=== PATIENT | female | born 1935 | race Caucasian/White ===

== ENCOUNTER 2017-11-28 09:47 | Day surgery (SDC) | payer MEDICARE, OTHER, SELFPAY ==
[2017-11-28 09:58] VITALS: BP 200/101; PULSE 102; RESP 16; TEMP 35.8; O2SAT 100; BMI 29.0
[2017-11-28] MEDS: SODIUM CHLORIDE 0.9% 1,000 ML 200 ML IV (10:20)
[2017-11-28 10:22] VITALS: BMI 29.0
[2017-11-28] MEDS: fentaNYL 250 MCG/5 ML INJ IV (10:38)
--- NOTE | 2017-11-28 10:38 | PM.HP.1 ---
History of Present Illness Chief complaint: [id number] SCREENING COLONOSCOPY Narrative: Renuka Horne is a 82 year old female The patient has had polyps removed in the past. Her last colonoscopy was 6 years ago. She is here for screening exam. Patient History Medical History History of CVA with residual deficit (Acute) Surgical History History of excision of pilonidal cyst (Inactive) History of knee replacement Family & Social History Social History: household members spouse Prior Living Arrangements House Tobacco & Substance use: Never smoked Meds Home Medications Medication Instructions Recorded Confirmed Type CALCIUM CARBONATE (#CALCIUM 600) 1,200 tab PO Q DAY #0 09/01/11 11/28/17 History Fish Oil 1,000 mg PO BID #0 09/01/11 11/28/17 History MULTIVITAMIN 1 cap PO Q DAY #0 09/01/11 11/28/17 History clobetasol 0 TOPICAL BID 11/28/17 History Allergies Allergy/AdvReac Type Severity Reaction Status Date / Time amlodipine [AMLODIPINE] Allergy Severe THROAT Verified 11/28/17 10:35 SWELLING latex [LATEX] Allergy Mild RASH Unverified 10/11/17 13:11 nitrofurantoin Allergy Mild RASH Unverified 10/11/17 13:11 [NITROFURANTOIN] Yhhimsn-Mmw-Fgb Reductase Allergy Mild JOINT PAINS Unverified 10/11/17 13:11 Inhibitor [PKESGHI-YGJ-YFT REDUCTASE INHIBITOR] sulfadiazine [SULFADIAZINE] Allergy Mild JOINT PAIN Unverified 10/11/17 13:11 ciprofloxacin [CIPROFLOXACIN] Allergy Unknown CIPRO HC Unverified 10/11/17 13:11 hydrocortisone Allergy Unknown CIPRO HC Unverified 10/11/17 13:11 [HYDROCORTISONE] Review of Systems Review of Systems All systems reviewed & are unremarkable except as noted in HPI and below Musculoskeletal Comments: Mild weakness right side after CVA. Physical therapy nearly resolved issue. Neurologic Comments: Mild issue with word forming and memory after CVA Exam Vital Signs (past 8 hours): Vital Signs - 8 hr 11/28/17 09:58 Temperature 96.5 F L Pulse Rate 102 H Respiratory Rate 16 Blood Pressure 200/101 H Pulse Oximetry 100 Pulse Oximetry 100 Oxygen Delivery Method Room Air Narrative Exam Narrative: Operative no apparent distress. Eyes nonicteric lungs are clear to auscultation without rales or rhonchi . heart regular rate and rhythm without murmur gallop. abdomen is soft scaphoid nontender without mass. patient is alert and oriented x3 Assessment & Plan Plan: Plan: I have discussed the procedure and the rationale with the patient including risks of bleeding, perforation which would necessitate a major operation, failure to find remove all lesions and the potential to tattoo. They appeared to understand and wished to proceed.
[2017-11-28] MEDS: MIDAZOLAM 5 MG/5 ML VIAL IV (10:39)
--- NOTE | 2017-11-28 10:44 | P.HP_ITS ---
History of Present Illness Chief complaint: [id number] SCREENING COLONOSCOPY Narrative: Renuka Horne is a 82 year old female The patient has had polyps removed in the past. Her last colonoscopy was 6 years ago. She is here for screening exam. Patient History Medical History History of CVA with residual deficit (Acute) Surgical History History of excision of pilonidal cyst (Inactive) History of knee replacement Family & Social History Social History: household members spouse Prior Living Arrangements House Tobacco & Substance use: Never smoked Meds Home Medications Medication Instructions Recorded Confirmed Type CALCIUM CARBONATE (#CALCIUM 600) 1,200 tab PO Q DAY #0 09/01/11 11/28/17 History Fish Oil 1,000 mg PO BID #0 09/01/11 11/28/17 History MULTIVITAMIN 1 cap PO Q DAY #0 09/01/11 11/28/17 History clobetasol 0 TOPICAL BID 11/28/17 History Allergies Allergy/AdvReac Type Severity Reaction Status Date / Time amlodipine [AMLODIPINE] Allergy Severe THROAT Verified 11/28/17 10:35 SWELLING latex [LATEX] Allergy Mild RASH Unverified 10/11/17 13:11 nitrofurantoin Allergy Mild RASH Unverified 10/11/17 13:11 [NITROFURANTOIN] Pwgfpaa-Hqo-Sjd Reductase Allergy Mild JOINT PAINS Unverified 10/11/17 13:11 Inhibitor [THWRSOP-ZVB-SAD REDUCTASE INHIBITOR] sulfadiazine [SULFADIAZINE] Allergy Mild JOINT PAIN Unverified 10/11/17 13:11 ciprofloxacin [CIPROFLOXACIN] Allergy Unknown CIPRO HC Unverified 10/11/17 13:11 hydrocortisone Allergy Unknown CIPRO HC Unverified 10/11/17 13:11 [HYDROCORTISONE] Review of Systems Review of Systems All systems reviewed & are unremarkable except as noted in HPI and below Musculoskeletal Comments: Mild weakness right side after CVA. Physical therapy nearly resolved issue. Neurologic Comments: Mild issue with word forming and memory after CVA Exam Vital Signs (past 8 hours): Vital Signs - 8 hr 3 11/28/17 09:58 Temperature 96.5 F L Pulse Rate 102 H Respiratory Rate 16 Blood Pressure 200/101 H Pulse Oximetry 100 Pulse Oximetry 100 Oxygen Delivery Method Room Air Narrative Exam Narrative: Operative no apparent distress. Eyes nonicteric lungs are clear to auscultation without rales or rhonchi . heart regular rate and rhythm without murmur gallop. abdomen is soft scaphoid nontender without mass. patient is alert and oriented x3 Assessment & Plan Plan: Plan: I have discussed the procedure and the rationale with the patient including risks of bleeding, perforation which would necessitate a major operation, failure to find remove all lesions and the potential to tattoo. They appeared to understand and wished to proceed.
--- NOTE | 2017-11-28 10:44 | PM.HP.1 ---
History of Present Illness Chief complaint: [id number] SCREENING COLONOSCOPY Narrative: Renuka Horne is a 82 year old female Patient History Medical History History of CVA with residual deficit (Acute) Surgical History History of excision of pilonidal cyst (Inactive) History of knee replacement Family & Social History Social History: household members spouse Prior Living Arrangements House Meds Home Medications Medication Instructions Recorded Confirmed Type CALCIUM CARBONATE (#CALCIUM 600) 1,200 tab PO Q DAY #0 09/01/11 11/28/17 History Fish Oil 1,000 mg PO BID #0 09/01/11 11/28/17 History MULTIVITAMIN 1 cap PO Q DAY #0 09/01/11 11/28/17 History clobetasol 0 TOPICAL BID 11/28/17 History Allergies Allergy/AdvReac Type Severity Reaction Status Date / Time amlodipine [AMLODIPINE] Allergy Severe THROAT Verified 11/28/17 10:35 SWELLING latex [LATEX] Allergy Mild RASH Unverified 10/11/17 13:11 nitrofurantoin Allergy Mild RASH Unverified 10/11/17 13:11 [NITROFURANTOIN] Ijsowfz-Xwz-Snn Reductase Allergy Mild JOINT PAINS Unverified 10/11/17 13:11 Inhibitor [DJAJEYD-GLE-OBH REDUCTASE INHIBITOR] sulfadiazine [SULFADIAZINE] Allergy Mild JOINT PAIN Unverified 10/11/17 13:11 ciprofloxacin [CIPROFLOXACIN] Allergy Unknown CIPRO HC Unverified 10/11/17 13:11 hydrocortisone Allergy Unknown CIPRO HC Unverified 10/11/17 13:11 [HYDROCORTISONE] Exam Vital Signs (past 8 hours): Vital Signs - 8 hr 11/28/17 09:58 Temperature 96.5 F L Pulse Rate 102 H Respiratory Rate 16 Blood Pressure 200/101 H Pulse Oximetry 100 Pulse Oximetry 100 Oxygen Delivery Method Room Air
--- NOTE | 2017-11-28 10:47 | P.HP_ITS ---
History of Present Illness Chief complaint: [id number] SCREENING COLONOSCOPY Narrative: Renuka Horne is a 82 year old female Patient History Medical History History of CVA with residual deficit (Acute) Surgical History History of excision of pilonidal cyst (Inactive) History of knee replacement Family & Social History Social History: household members spouse Prior Living Arrangements House Meds Home Medications Medication Instructions Recorded Confirmed Type CALCIUM CARBONATE (#CALCIUM 600) 1,200 tab PO Q DAY #0 09/01/11 11/28/17 History Fish Oil 1,000 mg PO BID #0 09/01/11 11/28/17 History MULTIVITAMIN 1 cap PO Q DAY #0 09/01/11 11/28/17 History clobetasol 0 TOPICAL BID 11/28/17 History Allergies Allergy/AdvReac Type Severity Reaction Status Date / Time amlodipine [AMLODIPINE] Allergy Severe THROAT Verified 11/28/17 10:35 SWELLING latex [LATEX] Allergy Mild RASH Unverified 10/11/17 13:11 nitrofurantoin Allergy Mild RASH Unverified 10/11/17 13:11 [NITROFURANTOIN] Trxyctb-Bhh-Ytz Reductase Allergy Mild JOINT PAINS Unverified 10/11/17 13:11 Inhibitor [WMLXRXG-OWB-EOQ REDUCTASE INHIBITOR] sulfadiazine [SULFADIAZINE] Allergy Mild JOINT PAIN Unverified 10/11/17 13:11 ciprofloxacin [CIPROFLOXACIN] Allergy Unknown CIPRO HC Unverified 10/11/17 13:11 hydrocortisone Allergy Unknown CIPRO HC Unverified 10/11/17 13:11 [HYDROCORTISONE] Exam Vital Signs (past 8 hours): Vital Signs - 8 hr 3 11/28/17 09:58 Temperature 96.5 F L Pulse Rate 102 H Respiratory Rate 16 Blood Pressure 200/101 H Pulse Oximetry 100 Pulse Oximetry 100 Oxygen Delivery Method Room Air
--- NOTE | 2017-11-28 10:47 | PM.PREOP ---
Pre-operative Note Interval Note Pre-op Check: History & Physical exam performed today ASA Class (for procedural sedation): II
--- NOTE | 2017-11-28 11:07 | SUR.OPER ---
BILATERAL HEARING AIDS REMOVED ,LABELED AND PLACED IN A CUP FOR PATIENT. HANDED OVER TO [employer] IN LABELED CUP
--- NOTE | 2017-11-28 11:40 | PM.OP.ENDO ---
Operative Date/Time/Diagnoses - Date of procedure: 11/28/17 Time of procedure: 11:40 Pre-op diagnosis: Screening exam last colonoscopy 6 years ago. 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 Could not get beyond it. Extensive diverticulosis) Procedure & Clinicians Study performed: Colonoscopy converted to flex sig Same procedure as scheduled: Yes Indications: Screening Surgeon: Man Kearns Procedure Notes SCOAP/Timeout: Performed Procedure in detail: Patient is placed in left lateral decubitus position underwent IV sedation directed by the surgeon consisting fentanyl and Versed. Digital exam was unremarkable. The patient was also given Phenergan due to history of nausea with anesthesia. Scope was inserted advanced through the rectum into the sigmoid. Very early on a encountered numerous diverticulitis stricture. I repositioned the patient and manipulated the scope but not get beyond that stricture. The scope was removed and a pediatric scope was inserted. The result was the same. After attempting for area of diverticulosis and stricture I admitted defeat and abandon the procedure. The scope was removed the patient was noted to have internal hemorrhoids without ulceration. Scope withdrawal time: Not applicable Sedation minutes: 47 Findings: diverticulosis Specimen(s): none sent Complications: none Recommendations: Other recommendation (Barium enema recommended) Plan for aftercare: Follow-up with after barium enema Follow up: as needed Disposition: PACU
[2017-11-28 11:43] VITALS: BP 122/75; PULSE 72; RESP 13; TEMP 36.4; O2SAT 99
[2017-11-28 11:59] VITALS: BP 161/83; PULSE 68; RESP 15; TEMP 36.9; O2SAT 97
== END 2017-11-28 12:12 | disposition home or self-care (01) ==
PROVIDERS: Family Provider Family Medicine; PCP Family Medicine; Visit Provider Specialist
PROC: 0DJD8ZZ Inspection of Lower Intestinal Tract, Via Natural or Artificial Opening Endoscopic (ICD-10-PCS; CPT 45378; principal; 2017-11-28 11:00)
DX: Z12.11 Encounter for screening for malignant neoplasm of colon (principal); K57.30 Diverticulosis of large intestine without perforation or abscess without bleeding; Z86.010 Personal history of colon polyps; K56.699 Other intestinal obstruction unspecified as to partial versus complete obstruction
CPT/HCPCS: G0104; 45330; 99152; 99153; J2250; J3010

== ENCOUNTER → 2017-12-12 07:29 | Outpatient (CLI) | payer MEDICARE, OTHER, SELFPAY ==
--- NOTE | 2017-12-12 07:33 | DI.RAD.S_ITS ---
PROCEDURE: FL BARIUM ENEMA W AIR CONTRAST INDICATIONS: multiple diverticuli/incomplete coloscopy/stricture at 20cm COMPARISON: None. 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 No suspicious abdominal calcifications. Visualized solid organ contours are normal in size. No suspicious bony lesions. Colon: There is adequate air-contrast opacification from the rectum to the cecum. Contrast refluxes into the appendix. No strictures, ulcers, polyps, or masses are seen. Haustral folds are normal in thickness throughout. There is extensive diverticulosis involving the sigmoid colon and present to a lesser degree through the remainder of the colon including on the right. No acute diverticulitis is suspected.. IMPRESSION: Extensive diverticulosis, relative elongation of the colon with tortuosity. No sign of polyp or malignancy. No acute diverticulitis is suspected. Dictated by: Roni Tejeda M.D. on 12/12/2017 at 10:22 Approved by: Roni Tejeda M.D. on 12/12/2017 at 10:23
== END ==
PROVIDERS: Family Provider Family Medicine; PCP Family Medicine; Visit Provider Family Medicine
DX: K57.30 Diverticulosis of large intestine without perforation or abscess without bleeding (principal)
CPT/HCPCS: 74280

== ENCOUNTER → 2017-12-28 08:34 | Outpatient (CLI) | payer MEDICARE, OTHER, SELFPAY ==
[2017-12-28 10:53] LABS: Add Manual Diff / Slide Review NO; Basophils Percent Auto 0.3 % (0-2); Eosinophils Percent Auto 1.5 % (2-4); Hematocrit 40.6 % (36-46); Hemoglobin 13.7 g/dL (12.0-16.0); Lymphocytes Percent Auto 32.1 % (25-40); Mean Corpuscular HGB Conc 33.8 % (30-36); Mean Corpuscular Hemoglobin 32.3 PG (26-34); Mean Corpuscular Volume 95.8 fL (80-100); Neutrophils Absolute Auto 4000 /uL (3000-5900); Neutrophils Percent Auto 58.1 % (50-75); Platelet Count 218 X10^3/uL (150-400); Red Blood Cell Count 4.24 X10^6/uL (4.0-5.2); Red Cell Distribution Width 13.3 % (11.6-14.8); White Blood Cell Count 6.8 X10^3/uL (4.5-11.0)
[2017-12-28 11:29] LABS: Blood Urea Nitrogen 20 mg/dL (7-17); Calcium 9.7 mg/dL (8.4-10.2); Carbon Dioxide 29 mmol/L (22-32); Chloride 101 mmol/L (98-107); Cholesterol 229 mg/dL (140-199); Estimated Glomerular Filt Rate 53.3 mL/min (>60); Glucose 97 mg/dL (80-110); HDL Cholesterol 85 mg/dL (40-60); HEMOLYSIS < 15 (0-50); LDL Cholesterol Calculated 120 mg/dL (<100); Potassium 5.2 mmol/L (3.4-5.1); Sodium 143 mmol/L (137-145); Triglycerides 120 mg/dL (35-150)
== END ==
PROVIDERS: PCP Family Medicine; Visit Provider Family Medicine
DX: E78.2 Mixed hyperlipidemia (principal); I10 Essential (primary) hypertension
CPT/HCPCS: 36415; 80048; 80061; 85025

== ENCOUNTER → 2018-10-20 10:30 | Outpatient (CLI) | payer MEDICARE, OTHER, SELFPAY ==
--- NOTE | 2018-10-20 | DI.MG.S_ITS ---
BILATERAL DIGITAL SCREENING MAMMOGRAM 3D/2D WITH CAD: 10/20/2018 CLINICAL: Routine screening. Comparison is made to exams dated: 10/19/2017 mammogram, 10/05/2016 mammogram, and 10/01/2015 mammogram - [facility]. The tissue of both breasts is heterogeneously dense. This may lower the sensitivity of mammography. Current study was also evaluated with a Computer Aided Detection (CAD) system. There are benign calcifications in both breasts. No significant masses, calcifications, or other findings are seen in either breast. There has been no significant interval change. IMPRESSION: There is no mammographic evidence of malignancy. A 1 year screening mammogram is recommended. This exam was interpreted at Station ID: [id number]. NOTE: For mammograms, a report in lay terms will be sent to the patient. Approximately 15% of breast malignancies will not be visualized mammographically. In the management of a palpable breast mass, a negative mammogram must not discourage biopsy of a clinically suspicious lesion. Electronically Signed By: Savanah goddard/adela:10/22/2018 08:29:06 letter sent: Normal Exam ACR BI-RADS Category 2: Benign Finding(s) 3342F
== END ==
PROVIDERS: PCP Family Medicine; Visit Provider Family Medicine
DX: Z12.31 Encounter for screening mammogram for malignant neoplasm of breast (principal)
CPT/HCPCS: 77063; 77067

== ENCOUNTER → 2018-12-11 16:27 | Outpatient (CLI) | payer MEDICARE, OTHER, SELFPAY | PROVIDERS: PCP Family Medicine; Visit Provider Nurse Practitioner ==

== ENCOUNTER → 2019-01-11 09:41 | Outpatient (CLI) | payer MEDICARE, OTHER, SELFPAY ==
[2019-01-11 10:16] LABS: Add Manual Diff / Slide Review NO; Basophils Absolute Auto 0 /uL (0-100); Basophils Percent Auto 0.3 % (0-2); Eosinophils Absolute Auto 200 /uL (0-450); Eosinophils Percent Auto 2.8 % (2-4); Hematocrit 40.3 % (36-46); Hemoglobin 13.7 g/dL (12.0-16.0); Lymphocytes Absolute Auto 2100 /uL (1100-4500); Lymphocytes Percent Auto 33.3 % (25-40); Mean Corpuscular Hemoglobin 32.1 PG (26-34); Mean Corpuscular Volume 94.3 fL (80-100); Monocytes Absolute Auto 600 /uL (0-900); Monocytes Percent Auto 8.8 % (3-14); Neutrophils Absolute Auto 3500 /uL (1500-7000); Neutrophils Percent Auto 54.8 % (50-75); Platelet Count 221 X10^3/uL (150-400); Red Blood Cell Count 4.28 X10^6/uL (4.0-5.2); Red Cell Distribution Width 13.3 % (11.6-14.8); White Blood Cell Count 6.3 X10^3/uL (4.5-11.0)
[2019-01-11 10:34] LABS: Alanine Aminotransferase 16 IU/L (9-52); Albumin 4.4 g/dL (3.5-5.0); Albumin Globulin Ratio 1.5 (1.0-2.8); Alkaline Phosphatase 105 U/L (38-126); Aspartate Aminotransferase 28 IU/L (14-36); Bilirubin Total 0.8 mg/dL (0.2-1.3); Blood Urea Nitrogen 25 mg/dL (7-17); Calcium 9.9 mg/dL (8.4-10.2); Carbon Dioxide 29 mmol/L (22-32); Chloride 105 mmol/L (98-107); Cholesterol 207 mg/dL (140-199); Estimated Glomerular Filt Rate 53.2 mL/min (>60); Globulin 2.9 g/dL (1.7-4.1); Glucose 116 mg/dL (80-110); HDL Cholesterol 66 mg/dL (40-60); HEMOLYSIS < 15 (0-50); LDL Cholesterol Calculated 116 mg/dL (<100); Sodium 142 mmol/L (137-145); Total Protein 7.3 g/dL (6.3-8.2); Triglycerides 126 mg/dL (35-150)
[2019-01-11 11:39] LABS: Thyroid Stimulating Hormone 0.39 uIU/mL (0.47-4.68)
== END ==
PROVIDERS: PCP Family Medicine; Visit Provider Family Medicine
DX: E78.2 Mixed hyperlipidemia (principal); I10 Essential (primary) hypertension; M85.80 Other specified disorders of bone density and structure, unspecified site
CPT/HCPCS: 36415; 80053; 80061; 84443; 85025

== ENCOUNTER → 2019-02-07 10:38 | Outpatient (CLI) | payer MEDICARE, OTHER, SELFPAY ==
[2019-02-07 11:31] LABS: Hemoglobin A1C% w Est Avg Glu 5.7 % (4.0-6.0)
[2019-02-07 12:11] LABS: Free T3, Triiodothyronine Free 3.28 pg/mL (2.77-5.27); Free T4, Direct Thyroxine 1.18 ng/dL (0.78-2.19)
[2019-02-07 12:25] LABS: Thyroid Stimulating Hormone 1.87 uIU/mL (0.47-4.68)
== END ==
PROVIDERS: PCP Family Medicine; Visit Provider Family Medicine
DX: I10 Essential (primary) hypertension (principal)
CPT/HCPCS: 36415; 83036; 84439; 84443; 84481

== ENCOUNTER → 2019-02-25 09:18 | Outpatient (CLI) | payer MEDICARE, OTHER, SELFPAY ==
--- NOTE | 2019-02-25 10:14 | DI.US.S_ITS ---
PROCEDURE: US CAROTID DOPPLER BI INDICATIONS: TRANSIENT ISCHEMIC ATTACK TECHNIQUE: Color and pulse Doppler interrogation was performed of both carotid systems, with image documentation and velocity measurements. COMPARISON: [facility], STROKE PROTOCOL, 01/20/2015, 14:51. FINDINGS: Stenosis calculations are based on SRU (Society of Radiologists in Ultrasound) criteria. The flow velocities and the arterial waveforms are normal within both carotid arterial systems. Atherosclerotic plaque is seen on both sides. The estimated degree of internal carotid artery stenosis is less than 50%. Antegrade flow is confirmed within both vertebral arteries. IMPRESSION: No hemodynamically significant stenosis is seen. Atherosclerotic plaque is noted bilaterally. Dictated by: Jalen Islas M.D. on 02/25/2019 at 16:55 Approved by: Jalen Islas M.D. on 02/25/2019 at 16:56
== END ==
PROVIDERS: PCP Family Medicine; Visit Provider Family Medicine
DX: I63.9 Cerebral infarction, unspecified (principal)
CPT/HCPCS: 93880

== ENCOUNTER → 2019-12-27 13:28 | Outpatient (CLI) | payer MEDICARE, OTHER, SELFPAY ==
--- NOTE | 2019-12-27 13:32 | DI.MG.S_ITS ---
BILATERAL DIGITAL SCREENING MAMMOGRAM 3D/2D WITH CAD: 12/27/2019 CLINICAL: Routine screening. Comparison is made to exams dated: 10/20/2018 mammogram, 10/19/2017 mammogram, and 10/05/2016 mammogram - [facility]. The tissue of both breasts is heterogeneously dense. This may lower the sensitivity of mammography. Current study was also evaluated with a Computer Aided Detection (CAD) system. There are benign calcifications in both breasts. No significant masses, calcifications, or other findings are seen in either breast. There has been no significant interval change. IMPRESSION: There is no mammographic evidence of malignancy. A 1 year screening mammogram is recommended. This exam was interpreted at Station ID: [id number]. NOTE: For mammograms, a report in lay terms will be sent to the patient. Approximately 15% of breast malignancies will not be visualized mammographically. In the management of a palpable breast mass, a negative mammogram must not discourage biopsy of a clinically suspicious lesion. Electronically Signed By: Chi chanel/adela:12/31/2019 14:45:30 letter sent: Normal Exam ACR BI-RADS Category 2: Benign Finding(s) 3342F
== END ==
PROVIDERS: PCP Family Medicine; Referring Provider Family Medicine; Visit Provider Family Medicine
DX: Z12.31 Encounter for screening mammogram for malignant neoplasm of breast (principal)
CPT/HCPCS: 77063; 77067

== ENCOUNTER → 2020-01-06 07:08 | Outpatient (CLI) | payer MEDICARE, OTHER, SELFPAY ==
[2020-01-06 08:27] LABS: Add Manual Diff / Slide Review NO; Basophils Absolute Auto 0 /uL (0-100); Basophils Percent Auto 0.4 % (0-2); Eosinophils Absolute Auto 100 /uL (0-450); Eosinophils Percent Auto 2.3 % (2-4); Hematocrit 39.4 % (36-46); Hemoglobin 13.3 g/dL (12.0-16.0); Lymphocytes Absolute Auto 2000 /uL (1100-4500); Lymphocytes Percent Auto 31.3 % (25-40); Mean Corpuscular HGB Conc 33.7 % (30-36); Mean Corpuscular Hemoglobin 32.1 PG (26-34); Mean Corpuscular Volume 95.4 fL (80-100); Monocytes Absolute Auto 500 /uL (0-900); Monocytes Percent Auto 8.3 % (3-14); Neutrophils Absolute Auto 3600 /uL (1500-7000); Neutrophils Percent Auto 57.7 % (50-75); Platelet Count 207 X10^3/uL (150-400); Red Blood Cell Count 4.13 X10^6/uL (4.0-5.2); Red Cell Distribution Width 13.1 % (11.6-14.8); White Blood Cell Count 6.3 X10^3/uL (4.5-11.0)
[2020-01-06 08:37] LABS: Hemoglobin A1C% w Est Avg Glu 6.3 % (4.0-6.0)
[2020-01-06 08:41] LABS: Alanine Aminotransferase 13 IU/L (<35); Albumin 4.1 g/dL (3.5-5.0); Albumin Globulin Ratio 1.3 (1.0-2.8); Alkaline Phosphatase 88 U/L (38-126); Aspartate Aminotransferase 28 IU/L (14-36); BUN Creatinine Ratio 24.1 (6-22); Bilirubin Total 0.6 mg/dL (0.2-1.3); Blood Urea Nitrogen 21 mg/dL (7-17); Calcium 9.9 mg/dL (8.4-10.2); Carbon Dioxide 30 mmol/L (22-32); Chloride 104 mmol/L (98-107); Estimated Glomerular Filt Rate > 60.0 mL/min (>60); Globulin 3.1 g/dL (1.7-4.1); Glucose 100 mg/dL (80-110); HEMOLYSIS < 15 (0-50); Potassium 4.7 mmol/L (3.4-5.1); Sodium 138 mmol/L (137-145); Total Protein 7.2 g/dL (6.3-8.2)
[2020-01-06 09:16] LABS: Thyroid Stimulating Hormone 2.73 uIU/mL (0.47-4.68)
== END ==
PROVIDERS: PCP Family Medicine; Referring Provider Family Medicine; Visit Provider Family Medicine
DX: I10 Essential (primary) hypertension (principal); R73.9 Hyperglycemia, unspecified
CPT/HCPCS: 36415; 80053; 83036; 84443; 85025

== ENCOUNTER → 2020-01-21 10:47 | Outpatient (CLI) | payer MEDICARE, OTHER, SELFPAY ==
--- NOTE | 2020-01-21 12:37 | DIET.PN ---
Diabetes Intake: Initial Assessment Assess: Mrs. Horne is an 84 YOF referred for type 2 diabetes. She was recently diagnosed and has been working to improve dietary habits since DX. She believes this diagnosis was a result of stress related eating and baking due to Covid-19 pandemic. She reported dizziness during waking and between meals if she goes greater than 3 hrs without eating. This has improved with better eating habits and hydration. She has always been active including crossfit and walking, but in the last year her activity has decreased bc of knee issues. She does not currently have a glucometer. Labs: Per pt report: a1c: 6.3 Lipids: TC: 207 LDL: 116 HDL: 66 T Meds: NA Diet: per 24 hr recall: B: eng muffin w/ butter and jam, fruit S: coffee w/ cookies L: chix salad sandwich on a roll S: coffee w/ short bread D: protein, veg, salad, fruit or starch Wt: 161lb Ht: 62in BMI: 29.4 BP: 189/84 DX: Altered nutrition related laboratory values related to impaired glucose metabolism, lack of previous exposure to nutrition information as evidenced by pt report, diagnosis of diabetes, previous diet high in refined carbohydrates. Intervention: 1. Completed intake assessment. Discussed barriers to care. 2. Discussed pathophysiology of diabetes. Reviewed A1c and its correlation to blood glucose numbers. Discussed recommended BG ranges. 3. Discussed importance of self-monitoring, how often, and when to check. Provided demonstration on use of glucometer. 4. Reviewed hyper/hypoglycemia and treatment. 5. Reviewed safe disposal of equipment (strip/lancets/insulin needles). 6. Created SMART goals for pt self-care and success. 7. Discussed program curriculum outline and class needs based on individual goals. SMART Goals: 1. Patient would like to lose 10lb (~5% body wt) in 3 mo through increased exercise and better eating patterns. 2. Pt would like to start monitoring BG 2-3x/wk. Monitor/Evaluate: Anticipate excellent compliance. Pt will attend full DSME program. Nutrition class scheduled for January 22.
== END ==
PROVIDERS: PCP Family Medicine; Referring Provider Family Medicine; Visit Provider Family Medicine
DX: E11.9 Type 2 diabetes mellitus without complications (principal); Z71.3 Dietary counseling and surveillance
CPT/HCPCS: G0108

== ENCOUNTER → 2020-01-23 14:14 | Outpatient (CLI) | payer MEDICARE, OTHER, SELFPAY ==
--- NOTE | 2020-01-23 16:27 | DIET.PN ---
Diabetes: Healthy Eating 2 Intervention: Fats effects on glucose, weight, heart disease, cholesterol Sat Vs Unsat Protein- animal and plant based options Low, med, high fat meats Sugar substitutes Sodium Health claims Grocery shopping guidelines Eating away from home Alcohol Sick day guidelines Ketone Testing :
== END ==
PROVIDERS: PCP Family Medicine; Referring Provider Family Medicine; Visit Provider Family Medicine
DX: E11.9 Type 2 diabetes mellitus without complications (principal); Z71.3 Dietary counseling and surveillance
CPT/HCPCS: G0109

== ENCOUNTER → 2020-02-06 14:12 | Outpatient (CLI) | payer MEDICARE, OTHER, SELFPAY ==
--- NOTE | 2020-02-06 16:30 | DIET.PN ---
Diabetes Exercise/Lifestyle change: 1. Importance of exercise 2. FITT (frequency, intensity, time, type) 3. Strength training tips and guidelines 4. Glucose monitoring/ranges before and after a. Carbohydrate needs based on glucose ranges and duration/intensity of exercise b. Rule of 15 5. Proper foot attire 6. Developing strategies for behavior change 7. SMART Goal Setting 8. Home exercise routine demonstration (as a class)
== END ==
PROVIDERS: PCP Family Medicine; Referring Provider Family Medicine; Visit Provider Family Medicine
DX: E11.9 Type 2 diabetes mellitus without complications (principal); Z71.3 Dietary counseling and surveillance
CPT/HCPCS: G0109

== ENCOUNTER → 2020-02-11 10:07 | Outpatient (CLI) | payer MEDICARE, OTHER, SELFPAY ==
--- NOTE | 2020-02-11 11:49 | DIET.PN ---
Diabetes: Healthy Eating 1 Intervention: ? Discussed pathophysiology of diabetes and impact of nutrition/diet on blood sugar control.? Discussed fed versus non-fed state.?? ? Reviewed importance of Balance, Variety, and Moderation. ? Discussed the effect of carbohydrates/protein/fat on blood sugar control.? ? Stressed importance of consistent carbohydrate intake at each meal and provided instructions for recommended servings/portions of carbohydrates/protein per meal. Provided educational material. ? Reviewed carbohydrate counting and measuring carbohydrate content via serving sizes and reading nutrition labels.? Provided handouts.?? ? Discussed the difference between simple versus complex carbohydrates and the effect of fiber on blood sugar control.? Discussed various methods to increase fiber content in diet. ? Discussed the plate method for creating more carbohydrate conscious balanced meals. ? Stressed importance of meal timing and not going >4-5 hours between meals. Encouraged adding protein to evening snack to support glucose control overnight. ? Discussed importance of making dietary habits part of lifestyle change.
== END ==
PROVIDERS: PCP Family Medicine; Referring Provider Family Medicine; Visit Provider Family Medicine
DX: E11.9 Type 2 diabetes mellitus without complications (principal); Z71.3 Dietary counseling and surveillance
CPT/HCPCS: G0109

== ENCOUNTER → 2020-02-26 10:55 | Outpatient (CLI) | payer MEDICARE, OTHER, SELFPAY ==
[2020-02-26 11:53] VITALS: BMI 28.9
--- NOTE | 2020-02-26 11:53 | DIET.PN ---
DIABETES Nutrition Initial Assessment:? ASSESS:??Ms. Horne is a 84 yof??referred for type 2 diabetes seen as part of DSME program. She has been keeping a food record and monitoring her blood sugar for the last month. In reviewing her records, she reports consistent lowering of blood glucose and weight loss. She has replaced most treats with fruit or toast w/ peanut butter. She is eating more regularly (every 3-4 hrs) and is walking with her 3x/day. She reports significant improvement in her knees with increased activity and weight loss, and has been able to discontinue her chronic use of ibuprofen. She has only had one dizzy spell in the last month after missing her usual snack, which was resolved by eating a piece of toast. ??? LABS: Per pt report:? A1c: 6.3 FB-88 Evenin-150 (207 x1) ? MEDS:?? na ? DIET: Per 24-hour recall:? B: toast w/ pb L: ? sandwich w/ fruit Sn: crackers w/ pb D: soup w/ vegetable and chicken Sn: ? cup ice cream Eating Out: 1-2x wk Changes in Appetite: Less Hungry, different cravings Nutrition Supplements: Ca + Vit D, multi vit, biotin, fishoil ? Weight: 157lb Height: 62in BMI: ? 28.7 ? Exercise:? walking 3x/day NUTRITION DX 1. Altered Nutrition related labs related to impaired glucose metabolism, lack of previous exposure to accurate nutrition information as evidenced by pt report, dx of diabetes, previous diet high in refined carbohydrates.? INTERVENTION(s): 1. Reviewed pathophysiology of diabetes and impact of nutrition/diet on blood sugar control.? Discussed fed versus non-fed state.?? 2. Discussed the effect of carbohydrates/protein/fat on blood sugar control.? Stressed importance of consistent carbohydrate intake at each meal and provided instructions for recommended servings/portions of carbohydrates/protein per meal. Provided pt with educational material. 3. Reviewed carbohydrate counting and measuring carbohydrate content via serving sizes and reading nutrition labels.? 4. Discussed the difference between simple versus complex carbohydrates and the effect of fiber on blood sugar control.? Discussed various methods to increase fiber content in diet. 5. Stressed importance of meal timing and not going >4-5 hours between meals. Encouraged adding protein to evening snack to support glucose control overnight. Patient agreeable. 6. Discussed healthy weight loss goals of 1-2lbs per week through diet and exercise.? Pt agreeable to walking at least 30 minutes daily. 7. Recommend monitoring BG a few times per week alternating fasting and evening for continued glucose control MONITOR/EVALUATE: Anticipate good compliance.? Follow-up scheduled for 3 weeks to review new labs.
== END ==
PROVIDERS: PCP Family Medicine; Referring Provider Family Medicine; Visit Provider Family Medicine
DX: E11.9 Type 2 diabetes mellitus without complications (principal)
CPT/HCPCS: G0109

== ENCOUNTER → 2020-03-10 08:10 | Outpatient (CLI) | payer MEDICARE, OTHER, SELFPAY ==
[2020-03-10 10:31] LABS: Hemoglobin A1C% w Est Avg Glu 6.2 % (4.0-6.0)
[2020-03-10 10:50] LABS: BUN Creatinine Ratio 17.5 (6-22); Blood Urea Nitrogen 18 mg/dL (7-17); Calcium 9.9 mg/dL (8.4-10.2); Carbon Dioxide 33 mmol/L (22-32); Chloride 103 mmol/L (98-107); Cholesterol 208 mg/dL (140-199); Estimated Glomerular Filt Rate 51.3 mL/min (>60); Glucose 106 mg/dL (80-110); HDL Cholesterol 68 mg/dL (40-60); HEMOLYSIS < 15 (0-50); LDL Cholesterol Calculated 105 mg/dL (<100); Potassium 5.1 mmol/L (3.4-5.1); Sodium 138 mmol/L (137-145); Triglycerides 176 mg/dL (35-150)
== END ==
PROVIDERS: PCP Family Medicine; Referring Provider Family Medicine; Visit Provider Family Medicine
DX: E11.9 Type 2 diabetes mellitus without complications (principal); E78.2 Mixed hyperlipidemia; I10 Essential (primary) hypertension; M85.80 Other specified disorders of bone density and structure, unspecified site
CPT/HCPCS: 36415; 80048; 80061; 83036

== ENCOUNTER → 2020-03-17 14:04 | Outpatient (CLI) | payer MEDICARE, OTHER, SELFPAY ==
--- NOTE | 2020-03-17 15:26 | DIET.PN ---
Diabetes Follow Up Assess: Mrs. Horne is here for her 3 mo follow up visit. She continues to experience steady weight loss and is excited to report she has had to purchase smaller clothes. Recent labs show a minor improvement in her A1c. She has been consistent with her carbohydrate intake and managing her BG. She continues to walk daily and has seen 30 point glucose reductions after evening walks. She would like to get her A1c below 6.0. Labs: A1c: 6.2 Meds: na Dietary changes: cut out sweets, reduced fruit portions, limiting baked goods Ht: 62in Wt: 153.5lb BMI: 28 Nutrition DX: Altered nutrition related laboratory values related to impaired glucose metabolism, lack of previous exposure to nutrition information as evidenced by pt report, diagnosis of diabetes, previous diet high in refined carbohydrates. Intervention: 1. Completed follow up assessment. Reviewed barriers to care. 2. Reviewed new labs and importance of continued BG monitoring. 3. Reviewed SMART goals and made modifications where appropriate including wt management, activity, and A1c goals. 4. Discussed plan for ongoing support. Provided information for continued support and success. SMART goals: 1. Pt continues to strive for goal weight of 150lb through dietary changes and exercise daily. 2. Pt strives for A1c < 6.0 by June through continued lifestyle changes. Monitor/Evaluate: Pt will follow up in 3 mo to discuss new labs and barriers to care.
== END ==
PROVIDERS: PCP Family Medicine; Referring Provider Family Medicine; Visit Provider Family Medicine
DX: E11.9 Type 2 diabetes mellitus without complications (principal); Z71.3 Dietary counseling and surveillance
CPT/HCPCS: G0109

== ENCOUNTER → 2020-05-25 11:29 | Outpatient (CLI) | payer MEDICARE, OTHER, SELFPAY ==
[2020-05-25 12:32] LABS: Hemoglobin A1C% w Est Avg Glu 6.3 % (4.0-6.0)
[2020-05-25 12:38] LABS: BUN Creatinine Ratio 26.1 (6-22); Blood Urea Nitrogen 24 mg/dL (7-17); Calcium 9.7 mg/dL (8.4-10.2); Carbon Dioxide 31 mmol/L (22-32); Chloride 105 mmol/L (98-107); Estimated Glomerular Filt Rate 58.3 mL/min (>60); Glucose 102 mg/dL (80-110); HEMOLYSIS < 15 (0-50); Potassium 4.4 mmol/L (3.4-5.1); Sodium 140 mmol/L (137-145)
== END ==
PROVIDERS: PCP Family Medicine; Referring Provider Family Medicine; Visit Provider Family Medicine
DX: E11.9 Type 2 diabetes mellitus without complications (principal)
CPT/HCPCS: 36415; 80048; 83036

== ENCOUNTER → 2020-08-14 07:07 | Outpatient (CLI) | payer MEDICARE, OTHER, SELFPAY ==
[2020-08-14 08:42] LABS: Add Manual Diff / Slide Review NO; Basophils Absolute Auto 0 /uL (0-100); Basophils Percent Auto 0.2 % (0-2); Eosinophils Absolute Auto 100 /uL (0-450); Eosinophils Percent Auto 1.5 % (2-4); Hematocrit 40.8 % (36-46); Hemoglobin 13.3 g/dL (12.0-16.0); Lymphocytes Absolute Auto 2300 /uL (1100-4500); Lymphocytes Percent Auto 34.9 % (25-40); Mean Corpuscular HGB Conc 32.7 % (30-36); Mean Corpuscular Hemoglobin 31.9 PG (26-34); Mean Corpuscular Volume 97.6 fL (80-100); Monocytes Absolute Auto 600 /uL (0-900); Monocytes Percent Auto 8.9 % (3-14); Neutrophils Absolute Auto 3600 /uL (1500-7000); Neutrophils Percent Auto 54.5 % (50-75); Platelet Count 216 X10^3/uL (150-400); Red Blood Cell Count 4.18 X10^6/uL (4.0-5.2); Red Cell Distribution Width 12.8 % (11.6-14.8); White Blood Cell Count 6.6 X10^3/uL (4.5-11.0)
[2020-08-14 08:53] LABS: Alanine Aminotransferase 14 IU/L (<35); Albumin 4.3 g/dL (3.5-5.0); Albumin Globulin Ratio 1.6 (1.0-2.8); Alkaline Phosphatase 91 U/L (38-126); Aspartate Aminotransferase 26 IU/L (14-36); BUN Creatinine Ratio 25.6 (6-22); Bilirubin Total 0.6 mg/dL (0.2-1.3); Blood Urea Nitrogen 22 mg/dL (7-17); Calcium 9.9 mg/dL (8.4-10.2); Carbon Dioxide 31 mmol/L (22-32); Chloride 104 mmol/L (98-107); Cholesterol 215 mg/dL (140-199); Estimated Glomerular Filt Rate > 60.0 mL/min (>60); Globulin 2.7 g/dL (1.7-4.1); Glucose 105 mg/dL (80-110); HDL Cholesterol 76 mg/dL (40-60); HEMOLYSIS < 15 (0-50); LDL Cholesterol Calculated 114 mg/dL (<100); Potassium 4.6 mmol/L (3.4-5.1); Sodium 139 mmol/L (137-145); Triglycerides 124 mg/dL (35-150)
== END ==
PROVIDERS: PCP Family Medicine; Referring Provider Family Medicine; Visit Provider Family Medicine
DX: E11.9 Type 2 diabetes mellitus without complications (principal); I10 Essential (primary) hypertension; E78.2 Mixed hyperlipidemia
CPT/HCPCS: 36415; 80053; 80061; 83036; 85025

== ENCOUNTER → 2020-11-24 14:05 | Outpatient (CLI) | payer MEDICARE, OTHER, SELFPAY | PROVIDERS: PCP Family Medicine; Visit Provider Physician Assistant | DX: J02.9 Acute pharyngitis, unspecified (principal) | CPT/HCPCS: 87070 ==

== ENCOUNTER → 2021-01-06 10:34 | Outpatient (CLI) | payer MEDICARE, OTHER, SELFPAY ==
--- NOTE | 2021-01-06 10:37 | DI.MG.S_ITS ---
BILATERAL DIGITAL SCREENING MAMMOGRAM 3D/2D WITH CAD: 01/06/2021 CLINICAL: Routine screening. Comparison is made to exams dated: 12/27/2019 mammogram, 10/20/2018 mammogram, and 10/19/2017 mammogram - [facility]. The tissue of both breasts is heterogeneously dense. This may lower the sensitivity of mammography. Current study was also evaluated with a Computer Aided Detection (CAD) system. There is a round high density asymmetry in the right breast anterior depth superior region seen on the mediolateral oblique view only. This is increased in size. There is are grouped fine punctate calcifications in the left breast anterior depth central to the nipple seen on the mediolateral oblique view only. No other significant masses or calcifications are seen in either breast. IMPRESSION: INCOMPLETE: NEEDS ADDITIONAL IMAGING EVALUATION The round high density asymmetry in the right breast anterior depth superior region seen on the mediolateral oblique view only is indeterminate. Additional views with possible ultrasound are recommended. The calcifications in the left breast anterior depth central to the nipple seen on the mediolateral oblique view only are indeterminate. Magnification views as well as additional views with possible ultrasound are recommended. This exam was interpreted at Station ID: [id number]. NOTE: For mammograms, a report in lay terms will be sent to the patient. Approximately 15% of breast malignancies will not be visualized mammographically. In the management of a palpable breast mass, a negative mammogram must not discourage biopsy of a clinically suspicious lesion. Electronically Signed By: Ana lujan/:01/06/2021 12:42:45 letter sent: Additional Imaging Needed ACR BI-RADS Category 0: Incomplete 3340F
== END ==
PROVIDERS: PCP Family Medicine; Referring Provider Family Medicine; Visit Provider Family Medicine
DX: Z12.31 Encounter for screening mammogram for malignant neoplasm of breast (principal)
CPT/HCPCS: 77063; 77067

== ENCOUNTER → 2021-01-27 09:29 | Outpatient (CLI) | payer MEDICARE, OTHER, SELFPAY ==
--- NOTE | 2021-01-27 09:31 | DI.US.S_ITS ---
LIMITED ULTRASOUND OF RIGHT BREAST: 01/27/2021 CLINICAL: Patient returns today to evaluate a focal asymmetry in the right breast. Comparison is made to exams dated: 01/27/2021 mammogram, 01/06/2021 mammogram, 12/27/2019 mammogram, 10/20/2018 mammogram, 10/19/2017 mammogram, and 10/05/2016 mammogram - [facility]. Real-time ultrasound of the right breast 10-2 o'clock region was performed on the area of interest. No discrete cystic or solid mass lesion identified in the area of mammographic abnormality. IMPRESSION: NEGATIVE There is no sonographic evidence of malignancy. There are no abnormalities seen in the right breast to correspond with the mammography finding in the superior right breast. Findings on recent mammography likely represented summation artifact. A 1 year screening mammogram is recommended. This exam was interpreted at Station ID: [id number]. Electronically Signed By: Chi Painter M.D. ddp/:01/27/2021 10:35:02 letter sent: Normal Exam Ultrasound BI-RADS: 1 Negative
--- NOTE | 2021-01-27 09:31 | DI.MG.S_ITS ---
BILATERAL DIGITAL DIAGNOSTIC MAMMOGRAM 3D/2D WITH ADDITIONAL VIEWS: 01/27/2021 CLINICAL: Additional evaluation requested from prior study. Comparison is made to exams dated: 01/06/2021 mammogram, 12/27/2019 mammogram, and 10/20/2018 mammogram - [facility]. The tissue of both breasts is heterogeneously dense. This may lower the sensitivity of mammography. There is an oval equal density asymmetry with an obscured and circumscribed margin in the right breast anterior depth superior region seen on the mediolateral oblique view only. This is less prominent on additional views. The grouped punctate calcifications in the left breast sub-areolar depth central to the nipple seen on the mediolateral oblique view only are not seen on additional views. The findings on recent study were likely artifactual. The appearance is unchanged compared to prior studies. on additional views. No other significant masses or calcifications are seen in either breast. IMPRESSION: INCOMPLETE: NEEDS ADDITIONAL IMAGING EVALUATION The oval equal density asymmetry in the right breast anterior depth superior region seen on the mediolateral oblique view only is indeterminate. An ultrasound is recommended. Ultrasound will be performed immediately following the current exam. This exam was interpreted at Station ID: [id number]. NOTE: For mammograms, a report in lay terms will be sent to the patient. Approximately 15% of breast malignancies will not be visualized mammographically. In the management of a palpable breast mass, a negative mammogram must not discourage biopsy of a clinically suspicious lesion. Electronically Signed By: Chi Painter M.D. ddp/:01/27/2021 10:12:53 ACR BI-RADS Category 0: Incomplete 3340F
== END ==
PROVIDERS: PCP Family Medicine; Referring Provider Family Medicine; Visit Provider Family Medicine
DX: R92.8 Other abnormal and inconclusive findings on diagnostic imaging of breast (principal); N64.89 Other specified disorders of breast
CPT/HCPCS: 76642; 77066; G0279

== ENCOUNTER 2021-03-07 07:53 | Emergency (ER) | payer MEDICARE, OTHER, SELFPAY ==
[2021-03-07 08:18] VITALS: PULSE 92; O2SAT 96
[2021-03-07 08:19] VITALS: BP 174/79; PULSE 90; O2SAT 96
[2021-03-07 08:30] VITALS: PULSE 85; O2SAT 96
--- NOTE | 2021-03-07 08:41 | DI.RAD.S_ITS ---
PROCEDURE: XR KNEE RT 3V INDICATIONS: unable to bear wt TECHNIQUE: 3 views of the knee were acquired. COMPARISON: [facility], , KNEE 3V RIGHT, 04/15/2016, 13:38. FINDINGS: Bones: No fractures or dislocations. No suspicious bony lesions. Unremarkable knee arthroplasty hardware is seen. Soft tissues: No significant joint effusion. No suspicious soft tissue calcifications. Atherosclerotic calcification is noted. IMPRESSION: No acute plain film abnormality can be seen. Unremarkable postoperative hardware. Dictated by: Jalen Islas M.D. on 03/07/2021 at 8:31 Approved by: Jalen Islas M.D. on 03/07/2021 at 8:32
[2021-03-07 08:42] VITALS: BP 174/79; PULSE 87; RESP 16; TEMP 36.8; O2SAT 96
--- NOTE | 2021-03-07 08:46 | ED_ITS ---
HPI - Extremity Injury (Lower) General Chief Complaint: Extremity Injury, Lower Stated Complaint: Hurt right knee//sprain Time Seen by Provider: 03/07/21 08:25 Source: patient Mode of arrival: Wheelchair Limitations: no limitations History of Present Illness HPI Narrative: Patient is an 85-year-old female presents with right knee pain ongoing for last 2-3 days. She does remember any injury. She denies any numbne ss tingling or swelling. She has not had any fever. She denies any hip or back pain. She took 2 Aleve nervous morning around 1 or 2 in the morning. she said it helped some but is afraid to take any more. Every time she stands up she feels like it is going to give out on her. She has a walker at home that she has been using she says she would fall without it over the last 2 days. Related Data Home Medications Medication Instructions Recorded Confirmed CALCIUM CARBONATE (#CALCIUM 600) 1,200 tab PO Q DAY #0 09/01/11 11/24/20 Fish Oil 1,000 mg PO BID #0 09/01/11 11/24/20 MULTIVITAMIN 1 cap PO Q DAY #0 09/01/11 11/24/20 biotin 5 mg tablet 5 mg PO DAILY tab 01/08/20 11/24/20 Previous Rx's Medication Instructions Recorded blood-glucose meter #1 each 01/28/20 lancets 30 gauge and blood glucose #200 each 01/28/20 strips combo pack disabled parking permit #1 ea 06/03/20 clobetasol 0.05 % topical ointment See Rx Instructions .ROUTE 01/22/21 .COMPLEX #60 g blood sugar diagnostic (Blood #100 ea 02/17/21 Glucose Test) Allergies Allergy/AdvReac Type Severity Reaction Status Date / Time amlodipine [AMLODIPINE] Allergy Severe THROAT Verified 11/24/20 13:50 SWELLING latex [LATEX] Allergy Mild RASH Verified 11/24/20 13:50 nitrofurantoin Allergy Mild RASH Verified 11/24/20 13:50 [NITROFURANTOIN] Nisjiek-Xef-Gog Reductase Allergy Mild JOINT PAINS Verified 11/24/20 13:50 Inhibitor [[id number] REDUCTASE INHIBITOR] sulfadiazine [SULFADIAZINE] Allergy Mild JOINT PAIN Verified 11/24/20 13:50 ciprofloxacin [CIPROFLOXACIN] Allergy Unknown CIPRO HC Verified 11/24/20 13:50 hydrocortisone Allergy Unknown CIPRO HC Verified 11/24/20 13:50 [HYDROCORTISONE] Review of Systems Review of Systems Narrative: GENERAL: Denies chills,fever HEENT: Denies throat pain RESPIRATORY: Denies dyspnea, cough, wheezing CARDIOVASCULAR: Denies chest pain, palpitations GASTROINTESTINAL: Denies nausea, vomiting MUSCULOSKELETAL: See HPI SKIN: No rash, no laceration, no pruritus NEUROLOGIC: Denies weakness, dizziness, headache, numbness 8 point review of systems is negative except for those stated above and HPI Patient History Medical History History of CVA with residual deficit Hypertension Small vessel cerebrovascular accident (CVA) (07/22/15) Type 2 diabetes mellitus Surgical History History of excision of pilonidal cyst History of knee replacement Family History Brother Diabetes mellitus Heart disease Hypertension High cholesterol Father Cancer Mother Hypertension High cholesterol Sister Heart disease Hypertension High cholesterol Social History household members: spouse Smoking Status: Never smoker eating out: 1-3 times/week Type(s) of exercise: walking Smoking Status: Never smoker Substance Use Type: does not use Exam Initial Vital Signs Initial Vital Signs: Vital Signs Pulse Rate 92 H 03/07/21 08:18 Pulse Oximetry 96 03/07/21 08:18 GENERAL: Well-appearing 85-year-old female CARDIOVASCULAR: peripheral pulses in tact, cap refill <2 sec RESPIRATORY: No respiratory distress, speaks in full sentences without difficulty EXTREMITIES: Normal range of motion, no clubbing or edema. Neurovascularly intact Right lower extremity scar noted from TKA, minimal swelling no erythema able to flex and extend no calf pain hip internal external rotation no pain BACK: No vertebral tenderness or step-off NEUROLOGICAL: Cranial nerves II through XII grossly intact. Normal gait and speech. SKIN: Warm, dry, no petechiae, no rashes or lesions. Course Orders Ordered: ED Orders 03/07/21 08:41 XR knee RT 3V Stat Discontinued Medications Acetaminophen (Acetaminophen 325 Mg Tablet) 975 mg PO NOW ONE Stop: 03/07/21 09:16 Last Admin: 03/07/21 09:24 Dose: 975 mg Documented by: TAMMY Ketorolac Tromethamine (Ketorolac 30 Mg/Ml Vial) 30 mg IM NOW ONE Stop: 03/07/21 09:16 Last Admin: 03/07/21 09:24 Dose: 30 mg Documented by: TAMMY Vital Signs Vital signs: Vital Signs - 8 hr 03/07/21 08:18 03/07/21 08:19 03/07/21 08:30 Temperature Pulse Rate 92 H 90 85 Respiratory Rate Blood Pressure 174/79 H Pulse Oximetry 96 96 96 03/07/21 08:42 03/07/21 09:00 03/07/21 09:30 Temperature 98.3 F Pulse Rate 87 81 81 Respiratory Rate 16 Blood Pressure 174/79 H Pulse Oximetry 96 97 97 [facility] - Extremity Injury (Lower) Imaging Data Extremity x-ray #1: Radiologist's Impression: PROCEDURE:? XR KNEE RT 3V ? INDICATIONS:? unable to bear wt ? TECHNIQUE:? 3 views of the knee were acquired.? ? COMPARISON:? [facility], , KNEE 3V RIGHT, 04/15/2016, 13:38. ? FINDINGS:? ? Bones:? No fractures or dislocations.? No suspicious bony lesions.? Unremarkable knee arthroplasty hardware is seen. ? Soft tissues:? No significant joint effusion.? No suspicious soft tissue calcifications.? Atherosclerotic calcification is noted.? ? ? IMPRESSION:? No acute plain film abnormality can be seen. ? Unremarkable postoperative hardware. ? ? Dictated by: Jalen Islas M.D. on 03/07/2021 at 8:31 ? ? Approved by: Jalen Islas M.D. on 03/07/2021 at 8:32 ? [facility] Narrative Medical decision making narrative: Patient is given Toradol and Tylenol and a knee brace. This seems to have helped her pain a lot. She is able to stand and weightbear. At this time pain control and outpatient follow-up. He has a walker at home. Discharge Plan Departure Patient Disposition: Home Clinical Impression: Strain of right knee Qualifiers: Encounter type: initial encounter Qualified Code(s): S86.911A - Strain of unspecified muscle(s) and tendon(s) at lower leg level, right leg, initial encounter Instructions: DI for Knee Sprain Activity Restrictions/Additional Instructions: *You have been diagnosed with right knee strain *What to do: Wear knee brace as needed especially will active during the day, you may remove it for showering and sleeping. You may require repeat x-ray, *Continue to take medications as directed Aleve 2 tablets every 12 hours if needed for [id number] Tylenol 1000 mg every 6 hours if needed for mild her pain do not exceed more than 4000 mg in 24 *Follow up with your primary care provider in 2-3 days *Return to ER if you should have increasing pain, weakness, fever, or new, worsening or concerning symptoms Prescriptions: No Action CALCIUM CARBONATE (#CALCIUM 600) bottle 1,200 tab PO Q DAY Qty: 0 RF: 0 Fish Oil 1,000 mg PO BID Qty: 0 RF: 0 MULTIVITAMIN 1 cap PO Q DAY Qty: 0 RF: 0 (DME) blood-glucose meter Misc See Rx Instructions .ROUTE .MEDSUPPLY Qty: 1 RF: 0 (DME) lancets-blood glucose strips 30 gauge combo pack See Rx Instructions .ROUTE .MEDSUPPLY Qty: 200 RF: 1 clobetasol 0.05 % ointment See Rx Instructions .ROUTE .COMPLEX Qty: 60 RF: 11 (DME) Blood Glucose Test Strip See Rx Instructions .ROUTE .MEDSUPPLY Qty: 100 RF: 11 (DME) disabled parking permit See Rx Instructions .ROUTE .MEDSUPPLY Qty: 1 RF: 0 biotin 5 mg tablet 5 mg PO DAILY RF: 0 Referrals: Artemio Bowen DO [Primary Care Provider] -
[2021-03-07 09:00] VITALS: PULSE 81; O2SAT 97
[2021-03-07] MEDS: ACETAMINOPHEN 325 MG TABLET 975 MG PO (09:24)
[2021-03-07] MEDS: KETOROLAC 30 MG/ML VIAL IM (09:24)
[2021-03-07 09:30] VITALS: PULSE 81; O2SAT 97
== END 2021-03-07 10:03 | disposition home or self-care (01) ==
PROVIDERS: Emergency Provider Emergency Medicine; PCP Family Medicine
DX: S86.911A Strain of unspecified muscle(s) and tendon(s) at lower leg level, right leg, initial encounter (principal); X58.XXXA Exposure to other specified factors, initial encounter
CPT/HCPCS: 73562; 96372; 99283; 99284; J1885

== ENCOUNTER → 2021-04-14 07:38 | Outpatient (CLI) | payer MEDICARE, OTHER, SELFPAY ==
[2021-04-14 08:44] LABS: Hemoglobin A1C% w Est Avg Glu 5.9 % (4.0-6.0)
[2021-04-14 09:01] LABS: Alanine Aminotransferase 15 IU/L (<35); Albumin 4.2 g/dL (3.5-5.0); Albumin Globulin Ratio 1.6 (1.0-2.8); Alkaline Phosphatase 97 U/L (38-126); Aspartate Aminotransferase 28 IU/L (14-36); BUN Creatinine Ratio 32.1 (6-22); Bilirubin Total 0.7 mg/dL (0.2-1.3); Blood Urea Nitrogen 27 mg/dL (7-17); Calcium 9.8 mg/dL (8.4-10.2); Carbon Dioxide 28 mmol/L (22-32); Chloride 105 mmol/L (98-107); Cholesterol 194 mg/dL (140-199); Estimated Glomerular Filt Rate > 60.0 mL/min (>60); Globulin 2.6 g/dL (1.7-4.1); Glucose 103 mg/dL (80-110); HDL Cholesterol 93 mg/dL (40-60); HEMOLYSIS < 15 (0-50); LDL Cholesterol Calculated 80 mg/dL (<100); Potassium 4.5 mmol/L (3.4-5.1); Sodium 140 mmol/L (137-145); Total Protein 6.8 g/dL (6.3-8.2); Triglycerides 103 mg/dL (35-150)
[2021-04-14 10:35] LABS: Creatinine Urine Random 130.9 mg/dL
[2021-04-16 17:03] LABS: Microalbumin Urine Random 5.5 mg/dL (0-1.6)
== END ==
PROVIDERS: PCP Family Medicine; Referring Provider Registered Nurse; Visit Provider Registered Nurse
DX: E11.9 Type 2 diabetes mellitus without complications (principal); I10 Essential (primary) hypertension; E78.2 Mixed hyperlipidemia
CPT/HCPCS: 36415; 80053; 80061; 82043; 82570; 83036

== ENCOUNTER 2021-09-08 09:09 | Emergency (ER) | payer MEDICARE, OTHER, SELFPAY ==
[2021-09-08] VITALS (24 sets, daily range): BP systolic 166–237; BP diastolic 74–108; PULSE 72–96; RESP 16–23; TEMP 36.3; O2SAT 92–100; BMI 27.2
--- NOTE | 2021-09-08 09:39 | DI.RAD.S_ITS ---
PROCEDURE: XR CHEST 1V INDICATIONS: hypertension TECHNIQUE: One view of the chest was acquired. COMPARISON: [facility], , CHEST 1 VIEW, 05/25/2016, 22:44. FINDINGS: Surgical changes and devices: None. Lungs and pleura: Lungs are clear. No pleural effusions or pneumothorax. Mediastinum: Mildly tortuous thoracic aorta is seen with aortic arch calcifications. Heart size is normal. Bones and chest wall: Moderate S-shaped scoliosis of thoracolumbar spine is seen. No suspicious bony lesions. Overlying soft tissues appear unremarkable. IMPRESSION: No acute cardiopulmonary pathology. Dictated by: Jay Jay Keith M.D. on 09/08/2021 at 9:50 Approved by: Jay Jay Keith M.D. on 09/08/2021 at 9:53
--- NOTE | 2021-09-08 09:40 | ED_ITS ---
HPI - General Adult General Chief complaint: Hypertension Stated complaint: Hx of high b/p [id number] takes Metoprolol Time Seen by Provider: 09/08/21 09:37 Source: patient Mode of arrival: Ambulatory History of Present Illness HPI narrative: Patient is a 86-year-old female with history of hyperlipidemia, diabetes, CVA, hypertension. She presents today with elevated blood pressure with blood pressure 234/105. She says she has been checking her blood pressure multiple times a day, it has slowly been rising. She has noticed that she occasionally gets dizzy and walked to the left a couple times a week. She is currently not dizzy. She denies any numbness tingling weakness chest pain palpitations. She has been seen by her PCP who is managing her blood pressure. In July medication was changed from metoprolol tartrate 12.5 mg b.i.d. to metoprolol succinate 25 mg q.h.s. and it was thought at that morning dose of metoprolol was making her extremely tired. She still complains of tiredness. Related Data Home Medications Medication Instructions Recorded Confirmed CALCIUM CARBONATE (#CALCIUM 600) 1,200 tab PO Q DAY #0 09/01/11 07/22/21 Fish Oil 1,000 mg PO BID #0 09/01/11 07/22/21 MULTIVITAMIN 1 cap PO Q DAY #0 09/01/11 07/22/21 biotin 5 mg tablet 5 mg PO DAILY tab 01/08/20 07/22/21 metoprolol succinate 25 mg 50 mg PO .Q.h.s. tab 09/08/21 tablet,extended release 24 hr Previous Rx's Medication Instructions Recorded blood-glucose meter #1 each 01/28/20 lancets 30 gauge and blood glucose #200 each 01/28/20 strips combo pack disabled parking permit #1 ea 06/03/20 clobetasol 0.05 % topical ointment See Rx Instructions .ROUTE 01/22/21 .COMPLEX #60 g blood sugar diagnostic (Blood #100 ea 02/17/21 Glucose Test) trazodone 50 mg tablet 25 mg PO BEDTIME #30 tab 09/08/21 Allergies Allergy/AdvReac Type Severity Reaction Status Date / Time amlodipine [AMLODIPINE] Allergy Severe THROAT Verified 07/22/21 09:27 SWELLING latex [LATEX] Allergy Mild RASH Verified 07/22/21 09:27 nitrofurantoin Allergy Mild RASH Verified 07/22/21 09:27 [NITROFURANTOIN] Egmuzpo-GSV-YfE Reductase Allergy Mild JOINT PAINS Verified 07/22/21 09:27 Inhibitor [[id number] REDUCTASE INHIBITOR] sulfadiazine [SULFADIAZINE] Allergy Mild JOINT PAIN Verified 07/22/21 09:27 ciprofloxacin [CIPROFLOXACIN] Allergy Unknown CIPRO HC Verified 07/22/21 09:27 hydrocortisone Allergy Unknown CIPRO HC Verified 07/22/21 09:27 [HYDROCORTISONE] Review of Systems Review of Systems Narrative: GENERAL: Denies chills, fatigue, malaise, fever, sweats, travel HEENT: Denies sinus pain, ear pain, sore throat, difficulty swallowing, neck pain RESPIRATORY: Denies dyspnea, cough, wheezing, hemoptysis, sputum. CARDIOVASCULAR: Denies chest pain, palpitations, orthopnea, edema GASTROINTESTINAL: Denies nausea, vomiting, abdominal pain, diarrhea, constipat ion, melena. : Denies dysuria, frequency, incontinence, hematuria, urinary retention, flank pain. MUSCULOSKELETAL: Denies weakness, joint pain, or bony pain SKIN: No rash, no erythema, no pruritus NEUROLOGIC: dizzy, see HPI PSYCHIATRIC: No concerning psychosocial issues. 12 point review of systems is negative except for those stated above and HPI Patient History Medical History (Updated 09/08/21 @ 17:18 by Artemio Bowen DO) Anxiety History of CVA with residual deficit Hypertension Physical deconditioning Poor sleep pattern Small vessel cerebrovascular accident (CVA) (07/22/15) Tachycardia Type 2 diabetes mellitus Surgical History History of excision of pilonidal cyst History of knee replacement Family History Brother Diabetes mellitus Heart disease Hypertension High cholesterol Father Cancer Mother Hypertension High cholesterol Sister Heart disease Hypertension High cholesterol Social History household members: spouse Smoking Status: Never smoker eating out: 1-3 times/week Type(s) of exercise: walking Smoking Status: Never smoker Substance Use Type: does not use Exam Initial Vital Signs Initial Vital Signs: Vital Signs Temperature 97.3 F L 09/08/21 09:10 Pulse Rate 96 H 09/08/21 09:10 Respiratory Rate 18 09/08/21 09:10 Blood Pressure 234/105 H 09/08/21 09:10 Pulse Oximetry 96 09/08/21 09:10 GENERAL: Alert well-appearing 86-year-old and in no acute distress. HEENT: Head atraumatic,EOMI, pupils reactive, face symmetric, moist mucous membr anes CARDIOVASCULAR: Regular rate and rhythm without murmurs, rubs or gallops. RESPIRATORY: Breath sounds equal bilaterally, no wheezes rales or rhonchi. ABDOMEN: Soft, nontender. Normoactive bowel sounds all 4 quadrants. No guarding or rebound. EXTREMITIES: Normal range of motion, no clubbing or edema. Neurovascularly intact NEUROLOGICAL: Alert and oriented x4.Normal gait and speech. Cranial nerves II through XII grossly intact. Good [id number], good omha-cm-bchl, strength equal bilaterally, no dysarthria or aphasia, sensation in tact to soft touch bilaterally, no visual changes, no facial droop SKIN: Warm, dry, no laceration, no petechiae, no rashes or lesions. Scores NIH Stroke Scale Level of Conciousness: Alert, keenly responsive Ask month/age: Answers both questions correctly. Open/close eyes, close hand: Performs both tasks correctly Best gaze horizontal: Normal Visual fang: No visual loss Facial palsy: Normal symetrical movement Left arm drift: No drift for full 10 sec Right arm drift: No drift for full 10 sec Left leg drift: No drift for full 5 sec Right leg drift: No drift for full 5 sec Limb ataxia: Absent Sensory on face/arms/legs: Normal, no sensory loss Best language: No aphasia, normal Dysarthria: Normal Extinction or inattention: No abnormality Total NIH Stroke scale score: 0 Course Orders Ordered: ED Orders 09/08/21 10:30 CT head/brain wo con Stat Discontinued Medications Labetalol HCl (Labetalol 20 Mg/4 Ml Syringe) 10 mg IV NOW ONE Stop: 09/08/21 10:34 Last Admin: 09/08/21 10:47 Dose: 10 mg Documented by: YANIRA Vital Signs Vital signs: Vital Signs - 8 hr 09/08/21 11:10 09/08/21 11:11 09/08/21 11:20 Pulse Rate 78 77 76 Respiratory Rate 19 19 23 Blood Pressure 211/84 H 182/74 H Pulse Oximetry 99 98 97 09/08/21 11:21 09/08/21 11:30 09/08/21 11:40 Pulse Rate 75 74 75 Respiratory Rate 18 21 23 Blood Pressure 182/74 H 175/79 H 166/78 H Pulse Oximetry 98 98 98 09/08/21 11:50 09/08/21 12:00 09/08/21 12:20 Pulse Rate 75 72 73 Respiratory Rate 22 22 20 Blood Pressure 184/84 H 171/74 H 181/79 H Pulse Oximetry 98 98 98 09/08/21 13:12 Pulse Rate 78 Respiratory Rate Blood Pressure 211/94 H Pulse Oximetry 97 Medical Decision Making Lab Data Result diagrams: 09/08/21 09:30 09/08/21 09:30 Labs: Lab Results 09/08/21 09/08/21 Range/Units 09:30 09:30 WBC 6.8 (4.5-11.0) X10^3/uL RBC 4.20 (4.0-5.2) X10^6/uL Hgb 13.3 (12.0-16.0) g/dL Hct 39.8 (36-46) % MCV 94.6 (80-100) fL MCH 31.6 (26-34) PG MCHC 33.4 (30-36) % RDW 13.0 (11.6-14.8) % Plt Count 217 (150-400) X10^3/uL Neut % (Auto) 68.7 (50-75) % Lymph % (Auto) 21.7 L (25-40) % [place] % (Auto) 8.6 (3-14) % Eos % (Auto) 0.7 L (2-4) % Baso % (Auto) 0.3 (0-2) % Neut # (Auto) 4700 (3437-1535) /uL Lymph # (Auto) 1500 (2528-8571) /uL [place] # (Auto) 600 (0-900) /uL Eos # (Auto) 0 (0-450) /uL Baso # (Auto) 0 (0-100) /uL Sodium 138 (137-145) mmol/L Potassium 4.2 (3.4-5.1) mmol/L Chloride 104 (98-107) mmol/L Carbon Dioxide 29 (22-32) mmol/L BUN 24 H (7-17) mg/dL Creatinine 0.94 (0.52-1.04) mg/dL Estimated GFR 56.7 L (>60) mL/min BUN/Creatinine Ratio 25.5 H (6-22) Glucose 182 H (80-110) mg/dL Calcium 9.6 (8.4-10.2) mg/dL Total Bilirubin 0.6 (0.2-1.3) mg/dL AST 27 (14-36) IU/L ALT 15 (<35) IU/L Alkaline Phosphatase 82 (38-126) U/L Total Creatine Kinase 35 (30-135) U/L CK-MB (CK-2) TNP CK-MB (CK-2) Rel Index TNP Troponin I < 0.012 (0.01-0.034) ng/mL Total Protein 7.7 (6.3-8.2) g/dL Albumin 4.5 (3.5-5.0) g/dL Globulin 3.2 (1.7-4.1) g/dL Albumin/Globulin Ratio 1.4 (1.0-2.8) Lipase 61 (23-300) U/L Imaging Data CT scan - head: Radiologist's Impression: PROCEDURE:? CT HEAD/BRAIN WO CON ? INDICATIONS:? htn and dizzy ? TECHNIQUE:? Noncontrast 4.5 mm thick angled axial sections acquired from the foramen magnum to the vertex, with coronal and sagittal reformats.? For radiation dose reduction, the following was used:? automated exposure control, adjustment of mA and/or kV according to patient size.? ? COMPARISON:? None. ? FINDINGS:? Image quality:? Excellent.? ? CSF spaces:? Basal cisterns are patent.? No extra-axial fluid collections.? The ventricles are symmetric in size and shape.? ? Brain:? No intracranial bleeds or masses.? There is cerebral volume loss for age, with resultant ventricular and sulcal prominence.? There are periventricular and deep white matter chronic small vessel ischemic changes.? There is intracranial internal carotid artery atherosclerosis.? ? Skull and face:? Calvarium and visualized facial bones appear intact, without suspicious lesions.? ? Sinuses:? Visualized sinuses and mastoids are clear.? ? IMPRESSION:? No acute intracranial abnormality. ? ? Dictated by: Wiliam Gonzales M.D. on 09/08/2021 at 10:48 ? ? Chest x-ray: Radiologist's Impression: PROCEDURE:? XR CHEST 1V ? INDICATIONS:? hypertension ? TECHNIQUE:? One view of the chest was acquired.? ? COMPARISON:? [facility], , CHEST 1 VIEW, 05/25/2016, 22:44. ? FINDINGS:? ? Surgical changes and devices:? None.? ? Lungs and pleura:? Lungs are clear.? No pleural effusions or pneumothorax.? ? Mediastinum:? Mildly tortuous thoracic aorta is seen with aortic arch calcifications.? Heart size is normal.? ? Bones and chest wall:? Moderate S-shaped scoliosis of thoracolumbar spine is seen.? No suspicious bony lesions.? Overlying soft tissues appear unremarkable.? ? IMPRESSION:? No acute cardiopulmonary pathology. ? ? Dictated by: Jay Jay Keith M.D. on 09/08/2021 at 9:50 ? ? Approved by: Jay Jay Keith M.D. on 09/08/2021 at 9:53 ? ECG Data Interpretation: Normal sinus rhythm rate 83 pr interval 234 QRS 90 QTC 4 T-wave inversion noted in lead [address] changes similar to prior MDM Narrative Medical decision making narrative: At this time patient does have persistently elevated blood pressure. She is given 1 dose of labetalol in the ED and did lower it. She has no sign of end- organ damage. He relatively asymptomatic. She occasionally is dizzy and leans to the left but this sounds like it happens intermittently for some time in is not actually having it now. She ambulated to the restroom without any problem. Head CT is negative. No other focal deficits. NIH stroke scale is 0. She was given 1 dose of labetalol, which did lower her blood pressure. I recommend that she take her blood pressure at home. She takes her metoprolol at night so I told her to take it in the morning and recorded and follow up closely with her primary care provider. Discharge Plan Departure Patient Disposition: Home Clinical Impression: Hypertension Qualifiers: Hypertension type: primary hypertension Qualified Code(s): I10 - Essential (primary) hypertension Instructions: DI for High Blood Pressure Activity Restrictions/Additional Instructions: *You have been diagnosed with hypertension *What to do: Please check your blood pressure once a day and record it. Either do this in the morning or at night please discuss with your primary care provider is about your blood pressure he may need blood pressure medication adjustment *Continue to take medications as directed *Follow up with your primary care provider in 2-3 days or call [phone] *Return to ER if you should have blood pressure higher than 190/100, chest pain headache shortness of breath dizziness or any new, worsening or concerning symptoms Prescriptions: No Action CALCIUM CARBONATE (#CALCIUM 600) bottle 1,200 tab PO Q DAY Qty: 0 0RF Fish Oil 1,000 mg PO BID Qty: 0 0RF MULTIVITAMIN 1 cap PO Q DAY Qty: 0 0RF (DME) blood-glucose meter Misc See Rx Instructions .ROUTE .MEDSUPPLY Qty: 1 0RF Rx Instructions: Use to check blood sugars once daily- brand per insurance (DME) lancets-blood glucose strips 30 gauge combo pack See Rx Instructions .ROUTE .MEDSUPPLY Qty: 200 1RF Rx Instructions: Use to check blood sugars once daily; brand per insurance clobetasol 0.05 % ointment See Rx Instructions .ROUTE .COMPLEX Qty: 60 11RF Dose Instruction: APPLY 1 GRAM TOPICALLY TWICE A DAY FOR ITCH Rx Instructions: APPLY 1 GRAM TOPICALLY TWICE A DAY FOR ITCH (DME) Blood Glucose Test Strip See Rx Instructions .ROUTE .MEDSUPPLY Qty: 100 11RF Rx Instructions: Use to check blood sugars once daily- brand per insurance (DME) disabled parking permit See Rx Instructions .ROUTE .MEDSUPPLY Qty: 1 0RF Rx Instructions: As directed. patient qualifies for disabled parking as per attached form. trazodone 50 mg tablet 25 mg PO BEDTIME Qty: 30 5RF metoprolol succinate 25 mg tablet extended release 24 hr 50 mg PO .Q.h.s. 0RF biotin 5 mg tablet 5 mg PO DAILY 0RF Referrals: Artemio Bowen DO [Primary Care Provider] -
[2021-09-08 09:44] LABS: Add Manual Diff / Slide Review NO; Basophils Absolute Auto 0 /uL (0-100); Basophils Percent Auto 0.3 % (0-2); Eosinophils Absolute Auto 0 /uL (0-450); Eosinophils Percent Auto 0.7 % (2-4); Hematocrit 39.8 % (36-46); Hemoglobin 13.3 g/dL (12.0-16.0); Lymphocytes Absolute Auto 1500 /uL (1100-4500); Lymphocytes Percent Auto 21.7 % (25-40); Mean Corpuscular HGB Conc 33.4 % (30-36); Mean Corpuscular Hemoglobin 31.6 PG (26-34); Mean Corpuscular Volume 94.6 fL (80-100); Monocytes Absolute Auto 600 /uL (0-900); Monocytes Percent Auto 8.6 % (3-14); Neutrophils Absolute Auto 4700 /uL (1500-7000); Neutrophils Percent Auto 68.7 % (50-75); Platelet Count 217 X10^3/uL (150-400); White Blood Cell Count 6.8 X10^3/uL (4.5-11.0)
[2021-09-08 09:51] LABS: Alanine Aminotransferase 15 IU/L (<35); Albumin 4.5 g/dL (3.5-5.0); Albumin Globulin Ratio 1.4 (1.0-2.8); Alkaline Phosphatase 82 U/L (38-126); Aspartate Aminotransferase 27 IU/L (14-36); BUN Creatinine Ratio 25.5 (6-22); Bilirubin Total 0.6 mg/dL (0.2-1.3); Blood Urea Nitrogen 24 mg/dL (7-17); Calcium 9.6 mg/dL (8.4-10.2); Carbon Dioxide 29 mmol/L (22-32); Chloride 104 mmol/L (98-107); Creatine Kinase 35 U/L (30-135); Estimated Glomerular Filt Rate 56.7 mL/min (>60); Globulin 3.2 g/dL (1.7-4.1); Glucose 182 mg/dL (80-110); HEMOLYSIS < 15 (0-50); Lipase 61 U/L (23-300); Potassium 4.2 mmol/L (3.4-5.1); Sodium 138 mmol/L (137-145); Total Protein 7.7 g/dL (6.3-8.2)
[2021-09-08 10:02] LABS: Troponin I < 0.012 ng/mL (0.01-0.034)
--- NOTE | 2021-09-08 10:30 | DI.CT.S_ITS ---
PROCEDURE: CT HEAD/BRAIN WO CON INDICATIONS: htn and dizzy TECHNIQUE: Noncontrast 4.5 mm thick angled axial sections acquired from the foramen magnum to the vertex, with coronal and sagittal reformats. For radiation dose reduction, the following was used: automated exposure control, adjustment of mA and/or kV according to patient size. COMPARISON: None. FINDINGS: Image quality: Excellent. CSF spaces: Basal cisterns are patent. No extra-axial fluid collections. The ventricles are symmetric in size and shape. Brain: No intracranial bleeds or masses. There is cerebral volume loss for age, with resultant ventricular and sulcal prominence. There are periventricular and deep white matter chronic small vessel ischemic changes. There is intracranial internal carotid artery atherosclerosis. Skull and face: Calvarium and visualized facial bones appear intact, without suspicious lesions. Sinuses: Visualized sinuses and mastoids are clear. IMPRESSION: No acute intracranial abnormality. Dictated by: Wiliam Gonzales M.D. on 09/08/2021 at 10:48 Approved by: Wiliam Gonzales M.D. on 09/08/2021 at 10:49
[2021-09-08] MEDS: LABETALOL 20 MG/4 ML SYRINGE 10 MG IV (10:47)
== END 2021-09-08 13:14 | disposition home or self-care (01) ==
PROVIDERS: Emergency Provider Emergency Medicine; PCP Family Medicine
DX: I10 Essential (primary) hypertension (principal); R42 Dizziness and giddiness
CPT/HCPCS: 36415; 70450; 71045; 80053; 82550; 83690; 84484; 85025; 93005; 93010; 96374; 99284

== ENCOUNTER → 2021-10-12 07:35 | Outpatient (CLI) | payer MEDICARE, OTHER, SELFPAY ==
[2021-10-12 08:16] LABS: Add Manual Diff / Slide Review NO; Basophils Absolute Auto 0 /uL (0-100); Basophils Percent Auto 0.3 % (0-2); Eosinophils Absolute Auto 100 /uL (0-450); Eosinophils Percent Auto 1.8 % (2-4); Hematocrit 37.9 % (36-46); Hemoglobin 12.6 g/dL (12.0-16.0); Lymphocytes Absolute Auto 1500 /uL (1100-4500); Lymphocytes Percent Auto 27.2 % (25-40); Mean Corpuscular HGB Conc 33.3 % (30-36); Mean Corpuscular Hemoglobin 31.7 PG (26-34); Mean Corpuscular Volume 95.1 fL (80-100); Monocytes Absolute Auto 500 /uL (0-900); Monocytes Percent Auto 9.3 % (3-14); Neutrophils Absolute Auto 3500 /uL (1500-7000); Neutrophils Percent Auto 61.4 % (50-75); Platelet Count 234 X10^3/uL (150-400); Red Blood Cell Count 3.99 X10^6/uL (4.0-5.2); Red Cell Distribution Width 13.3 % (11.6-14.8); White Blood Cell Count 5.7 X10^3/uL (4.5-11.0)
[2021-10-12 08:26] LABS: Hemoglobin A1C% w Est Avg Glu 6.3 % (4.0-6.0)
[2021-10-12 08:27] LABS: Alanine Aminotransferase 15 IU/L (<35); Albumin 4.4 g/dL (3.5-5.0); Albumin Globulin Ratio 1.4 (1.0-2.8); Alkaline Phosphatase 86 U/L (38-126); Aspartate Aminotransferase 28 IU/L (14-36); Bilirubin Total 0.7 mg/dL (0.2-1.3); Blood Urea Nitrogen 23 mg/dL (7-17); Calcium 9.5 mg/dL (8.4-10.2); Carbon Dioxide 29 mmol/L (22-32); Chloride 104 mmol/L (98-107); Cholesterol 191 mg/dL (140-199); Estimated Glomerular Filt Rate 58.3 mL/min (>60); Globulin 3.2 g/dL (1.7-4.1); Glucose 121 mg/dL (80-110); HDL Cholesterol 65 mg/dL (40-60); HEMOLYSIS < 15 (0-50); LDL Cholesterol Calculated 103 mg/dL (<100); Potassium 4.5 mmol/L (3.4-5.1); Sodium 142 mmol/L (137-145); Total Protein 7.6 g/dL (6.3-8.2); Triglycerides 117 mg/dL (35-150)
== END ==
PROVIDERS: PCP Family Medicine; Referring Provider Family Medicine; Visit Provider Family Medicine
DX: E11.9 Type 2 diabetes mellitus without complications (principal); E78.2 Mixed hyperlipidemia; I10 Essential (primary) hypertension
CPT/HCPCS: 36415; 80053; 80061; 83036; 85025

== ENCOUNTER → 2022-03-17 09:58 | Outpatient (CLI) | payer MEDICARE, OTHER, SELFPAY ==
--- NOTE | 2022-03-17 | DI.MG.S_ITS ---
BILATERAL DIGITAL SCREENING MAMMOGRAM 3D/2D WITH CAD: 03/17/2022 CLINICAL: Routine screening. Comparison is made to exams dated: 01/06/2021 mammogram, 12/27/2019 mammogram, and 10/20/2018 mammogram - [facility]. Both breasts are heterogeneously dense, which may obscure small masses (category c / 51-75% glandular tissue). Current study was also evaluated with a Computer Aided Detection (CAD) system. There are benign calcifications in both breasts. No significant masses, calcifications, or other findings are seen in either breast. There has been no significant interval change. IMPRESSION: BENIGN There is no mammographic evidence of malignancy. A 1 year screening mammogram is recommended. This exam was interpreted at Station ID: [id number]. NOTE: For mammograms, a report in lay terms will be sent to the patient. Approximately 15% of breast malignancies will not be visualized mammographically. In the management of a palpable breast mass, a negative mammogram must not discourage biopsy of a clinically suspicious lesion. Electronically Signed By: Usman evans/adela:03/17/2022 16:45:23 letter sent: Normal Exam ACR BI-RADS Category 2: Benign Finding(s) 3342F
== END ==
PROVIDERS: PCP Family Medicine; Referring Provider Family Medicine; Visit Provider Family Medicine
DX: Z12.31 Encounter for screening mammogram for malignant neoplasm of breast (principal)
CPT/HCPCS: 77063; 77067

== ENCOUNTER → 2022-03-28 07:40 | Outpatient (CLI) | payer MEDICARE, OTHER, SELFPAY ==
[2022-03-28 10:18] LABS: Hemoglobin A1C% w Est Avg Glu 6.1 % (4.0-6.0)
[2022-03-28 10:33] LABS: Alanine Aminotransferase 13 IU/L (<35); Albumin Globulin Ratio 1.4 (1.0-2.8); Alkaline Phosphatase 77 U/L (38-126); Aspartate Aminotransferase 22 IU/L (14-36); BUN Creatinine Ratio 19.4 (6-22); Bilirubin Total 0.4 mg/dL (0.2-1.3); Blood Urea Nitrogen 19 mg/dL (7-17); Calcium 9.5 mg/dL (8.4-10.2); Carbon Dioxide 29 mmol/L (22-32); Chloride 103 mmol/L (98-107); Estimated Glomerular Filt Rate 57 mL/min (>60); Globulin 2.8 g/dL (1.7-4.1); Glucose 109 mg/dL (80-110); HEMOLYSIS < 15 (0-50); Potassium 4.5 mmol/L (3.4-5.1); Sodium 138 mmol/L (137-145); Total Protein 6.8 g/dL (6.3-8.2)
== END ==
PROVIDERS: PCP Family Medicine; Referring Provider Family Medicine; Visit Provider Family Medicine
DX: E10.22 Type 1 diabetes mellitus with diabetic chronic kidney disease (principal); I10 Essential (primary) hypertension; N18.30 Chronic kidney disease, stage 3 unspecified
CPT/HCPCS: 36415; 80053; 83036

== ENCOUNTER → 2022-09-14 07:40 | Outpatient (CLI) | payer MEDICARE, OTHER, SELFPAY ==
[2022-09-14 08:27] LABS: Hemoglobin A1C% w Est Avg Glu 6.6 % (4.0-6.0)
[2022-09-14 08:34] LABS: Alanine Aminotransferase 15 IU/L (<35); Albumin Globulin Ratio 1.3 (1.0-2.8); Alkaline Phosphatase 87 U/L (38-126); Aspartate Aminotransferase 25 IU/L (14-36); Bilirubin Total 0.8 mg/dL (0.2-1.3); Blood Urea Nitrogen 24 mg/dL (7-17); Calcium 9.7 mg/dL (8.4-10.2); Carbon Dioxide 29 mmol/L (22-32); Chloride 104 mmol/L (98-107); Cholesterol 219 mg/dL (140-199); Estimated Glomerular Filt Rate > 60 mL/min (>60); Glucose 119 mg/dL (80-110); HEMOLYSIS 18 (0-50); Potassium 4.7 mmol/L (3.4-5.1); Sodium 138 mmol/L (137-145); Triglycerides 163 mg/dL (35-150)
[2022-09-14 08:35] LABS: HDL Cholesterol 69 mg/dL (40-60); LDL Cholesterol Calculated 117 mg/dL (<100)
[2022-09-14 08:40] LABS: Add Manual Diff / Slide Review NO; Basophils Absolute Auto 0 /uL (0-100); Basophils Percent Auto 0.2 % (0-2); Eosinophils Absolute Auto 100 /uL (0-450); Eosinophils Percent Auto 1.1 % (2-4); Hematocrit 39.5 % (36-46); Hemoglobin 13.2 g/dL (12.0-16.0); Lymphocytes Absolute Auto 2000 /uL (1100-4500); Lymphocytes Percent Auto 32.1 % (25-40); Mean Corpuscular HGB Conc 33.3 % (30-36); Mean Corpuscular Hemoglobin 31.3 PG (26-34); Mean Corpuscular Volume 93.9 fL (80-100); Monocytes Absolute Auto 600 /uL (0-900); Monocytes Percent Auto 8.9 % (3-14); Neutrophils Absolute Auto 3600 /uL (1500-7000); Neutrophils Percent Auto 57.7 % (50-75); Platelet Count 204 X10^3/uL (150-400); Red Blood Cell Count 4.21 X10^6/uL (4.0-5.2); Red Cell Distribution Width 13.3 % (11.6-14.8); White Blood Cell Count 6.2 X10^3/uL (4.5-11.0)
== END ==
PROVIDERS: PCP Family Medicine; Referring Provider Family Medicine; Visit Provider Family Medicine
DX: E10.22 Type 1 diabetes mellitus with diabetic chronic kidney disease (principal); E11.9 Type 2 diabetes mellitus without complications; E78.2 Mixed hyperlipidemia; I10 Essential (primary) hypertension; N18.30 Chronic kidney disease, stage 3 unspecified
CPT/HCPCS: 36415; 80053; 80061; 83036; 85025

== ENCOUNTER → 2022-10-11 09:46 | Outpatient (CLI) | payer MEDICARE, OTHER, SELFPAY ==
--- NOTE | 2022-10-11 09:47 | DI.NM.S_ITS ---
PROCEDURE: NM OMER PERF SPECT R&S PHARM Rest and pharmacological stress myocardial perfusion SPECT with gated imaging and ejection fraction RADIOPHARMACEUTICAL: 9.4 mCi Tc-99m tetrafosmin IV at rest and 26.1 mCi Tc-99m tetrafosmin IV at peak effect of pharmacological stress. Rcf-sbo-mpxpeigk was performed. INDICATIONS: Shortness of breath TECHNIQUE: Radiopharmaceutical was injected at peak stress test, and also at rest. SPECT images were obtained. SPECT myocardial perfusion images were displayed in short axis, horizontal long axis, and vertical long axis views. Gated images were reviewed using Dragonfly List software. COMPARISON: None. CARDIAC STRESS: A pharmacologic stress test was performed under the supervision of an attending staff, using an infusion of regadenoson 0.4 mg IV. Hemodynamic data: There is normal blood pressure and heart rate response to pharmacologic stress. Symptoms: The patient denied anginal chest pain. EKG: No diagnostic changes of ischemia; no ectopy. FINDINGS: Raw data: There is good myocardial uptake of radiotracer. No significant motion artifacts. Hait-ol-fhilr ratio is 0.38 (normal is less than 0.38 for tetrafosmin tracer). Left ventricle function: Gated images demonstrate normal left ventricular wall thickening. No segmental wall motion abnormalities. No transient ischemic dilation; TID is 1.0 (normal less than 1.3). Left ventricle resting end diastolic volume was not assessed. Left ventricle stress ejection fraction is > 75%; normal range is above 45%. Myocardial perfusion: There is a medium size, mild intensity reversible mid to distal anteroseptal and apical wall defect. IMPRESSION: Abnormal study. There is a medium size, mild intensity reversible mid to distal anteroseptal and apical wall defect which may be consistent with ischemia. Unfortunately, no prone images were obtained. Normal LV function. Dictated by: Lorrie Chavarria D.O. on 10/11/2022 at 16:23 Approved by: Lorrie Chavarria D.O. on 10/11/2022 at 16:30
--- NOTE | 2022-10-11 09:47 | DI.ECHO.S_ITS ---
[facility] +---------+ : : [address] : : : : [id number] : : : : Phone: [phone] Echocardiogram Report + + :Name: GRACE BENZ Study Date: 10/11/2022 Height: 62 in : :[facility] ReadingLocation: Weight: 154 lb : : Gender: Female BSA: 1.7 m2 : :: 1935 Age: 87 yrs BP: 191/83 mmHg: :Reason For Study: DYSPNEA HR: 75 : :Ordering Physician: INGRID DELCIDPerformed By: ALVARO PINO : :Referring: INGRID DELCID : + + Interpretation Summary Left ventricular wall thickness is moderately increased. The ejection fraction is estimated to be 60-65%. There is mild to moderate aortic regurgitation. Procedure: A two-dimensional transthoracic echocardiogram with color flow and Doppler was performed. The study quality was technically adequate. Comparison is made with the echocardiogram of 01/20/2015. The patient was in normal sinus rhythm during the exam. Left Ventricle: The left ventricle is normal in size. Left ventricular wall thickness is moderately increased. Left ventricular systolic function is normal. The ejection fraction is estimated to be 60-65%. Left ventricular wall motion is normal. Right Ventricle: The right ventricle is normal in size and function. Atria: Both atria are normal in size. There is no Doppler evidence for an interatrial shunt. Mitral Valve: The mitral valve leaflets appear normal. There is no evidence of stenosis, fluttering, or prolapse. The mitral valve leaflets are mildly calcified. There is trace mitral regurgitation. Aortic Valve: The aortic valve is trileaflet. The aortic valve opens well. There is no aortic valve stenosis. There is mild to moderate aortic regurgitation. Tricuspid Valve: The tricuspid valve is normal in structure and function. The right ventricular systolic pressure is estimated to be at least 23 mmHg based on an estimated right atrial pressure of 3 mm Hg. Pulmonic Valve: The pulmonic valve leaflets are thin and pliable; valve motion is normal. There is trace pulmonic regurgitation. Great Vessels: The aortic root is normal size. The ascending aorta could not be visualized. The IVC is of normal diameter and collapses greater than 50% with a sniff. This suggests a low right atrial pressure of 3 mm Hg. Pericardium/ Pleura There is no pericardial effusion. There is no pleural effusion. MMode/2D Measurements & Calculations LVIDd: 3.1 cm LVOT diam: 2.2 cm LVIDs: 2.1 cm Ao root diam: 3.2 cm FS: 34.6 % IVSd: 1.1 cm LVPWd: 1.5 cm LV bustos. diameter/BSA (cm/m^2): 1.8 LV sys. diameter/BSA (cm/m^2): 1.2 LA A2 area: 12.2 cm2 RA long axis: 4.9 cm LA A4 area: 16.9 cm2 RA area: 14.2 cm2 LA length (vol): 5.0 cm RA vol: 34.6 ml LA vol: 34.9 ml RA : 20.2 ml/m2 LA vol index: 20.4 ml/m2 TAPSE: 1.9 cm Doppler Measurements & Calculations Ao V2 max: 121.7 cm/sec LVOT Max Sammy: 124.6 cm/sec Ao V2 mean: 95.7 cm/sec LV V1 max P.2 mmHg Ao max P.9 mmHg LV V1 VTI: 27.5 cm Ao mean P.8 mmHg JULIANNE(I,D): 3.9 cm2 Ao V2 VTI: 25.9 cm JULIANNE(V,D): 3.8 cm2 sev ratio: 1.1 JULIANNE indexed to BSA (cm^2/m^2): 2.3 AI P1/2t: 441.8 msec AI dec slope: 296.5 cm/sec2 MV E max sammy: 58.9 cm/sec TR max sammy: 225.0 cm/sec MV A max sammy: 110.4 cm/sec TR max P.2 mmHg MV E/A: 0.53 PA pr(Accel): 29.3 mmHg Med Peak E' Sammy: 3.9 cm/sec E/E' med: 15.2 Lat Peak E' Sammy: 2.3 cm/sec E/E' lat: 26.1 E/e' average: 20.7 MV dec time: 0.25 sec SV(LVOT): 101.6 ml Reading Physician:02:44 PM
== END ==
PROVIDERS: PCP Family Medicine; Referring Provider Family Medicine; Visit Provider Family Medicine
DX: R94.39 Abnormal result of other cardiovascular function study (principal); I35.1 Nonrheumatic aortic (valve) insufficiency; R06.09 Other forms of dyspnea
CPT/HCPCS: 78452; 93017; 93306; A9502; J2785

== ENCOUNTER 2022-12-12 09:25 | Emergency (ER) | payer MEDICARE, OTHER, SELFPAY ==
[2022-12-12] VITALS (28 sets, daily range): BP systolic 130–240; BP diastolic 65–106; PULSE 59–80; RESP 16–29; TEMP 36.6; O2SAT 96–99; BMI 30.2
--- NOTE | 2022-12-12 09:51 | DI.RAD.S_ITS ---
PROCEDURE: XR CHEST 1V INDICATIONS: Shortness of breath TECHNIQUE: One view of the chest was acquired. COMPARISON: [facility], CR, XR CHEST 1V, 09/08/2021, 9:39. FINDINGS: Surgical changes and devices: None. Lungs and pleura: Lungs are clear. No pleural effusions or pneumothorax. Mediastinum: Mediastinal contours appear normal. Heart size is normal. Bones and chest wall: Severe scoliosis. No suspicious bony lesions. Overlying soft tissues appear unremarkable. IMPRESSION: No acute cardiopulmonary disease. Severe scoliosis. Dictated by: Burke Raymond M.D. on 12/12/2022 at 10:07 Approved by: Burke Raymond M.D. on 12/12/2022 at 10:10
[2022-12-12 09:58] LABS: Add Manual Diff / Slide Review NO; Basophils Absolute Auto 0 /uL (0-100); Basophils Percent Auto 0.3 % (0-2); Eosinophils Absolute Auto 100 /uL (0-450); Eosinophils Percent Auto 1.3 % (2-4); Hematocrit 38.6 % (36-46); Hemoglobin 13.1 g/dL (12.0-16.0); Lymphocytes Absolute Auto 1700 /uL (1100-4500); Lymphocytes Percent Auto 27.5 % (25-40); Mean Corpuscular HGB Conc 33.9 % (30-36); Mean Corpuscular Hemoglobin 32.4 PG (26-34); Mean Corpuscular Volume 95.6 fL (80-100); Monocytes Absolute Auto 600 /uL (0-900); Monocytes Percent Auto 10.1 % (3-14); Neutrophils Absolute Auto 3800 /uL (1500-7000); Neutrophils Percent Auto 60.8 % (50-75); Platelet Count 222 X10^3/uL (150-400); Red Blood Cell Count 4.04 X10^6/uL (4.0-5.2); Red Cell Distribution Width 13.6 % (11.6-14.8); White Blood Cell Count 6.3 X10^3/uL (4.5-11.0)
[2022-12-12 10:04] LABS: Prothrombin Time 11.5 SECONDS (10.1-12.7)
[2022-12-12 10:12] LABS: Alanine Aminotransferase 21 IU/L (<35); Albumin 4.2 g/dL (3.5-5.0); Albumin Globulin Ratio 1.3 (1.0-2.8); Alkaline Phosphatase 87 U/L (38-126); Aspartate Aminotransferase 50 IU/L (14-36); BUN Creatinine Ratio 26.1 (6-22); Bilirubin Total 0.6 mg/dL (0.2-1.3); Blood Urea Nitrogen 29 mg/dL (7-17); Calcium 9.6 mg/dL (8.4-10.2); Carbon Dioxide 29 mmol/L (22-32); Chloride 100 mmol/L (98-107); Estimated Glomerular Filt Rate 49 mL/min (>60); Globulin 3.2 g/dL (1.7-4.1); Glucose 124 mg/dL (80-110); HEMOLYSIS < 15 (0-50); Potassium 4.2 mmol/L (3.4-5.1); Sodium 137 mmol/L (137-145); Total Protein 7.4 g/dL (6.3-8.2)
--- NOTE | 2022-12-12 10:23 | ED_ITS ---
HPI - General Adult General Chief complaint: Hypertension Stated complaint: BP is high /SOB T-3 Time Seen by Provider: 12/12/22 10:04 Source: patient Mode of arrival: Ambulatory History of Present Illness HPI narrative: Patient is a 87-year-old female history of hypertension hyperlipidemia CVA type 2 diabetes presenting today with elevated blood pressure and shortness of breath. She reports that over the last 3 nights she is had shortness of breath and chest discomfort when she gets up to walk around. She then comes back and takes her blood pressure noted that it is elevated. While at rest sitting here she no longer has any sort of discomfort. She reports that she has had orthopnea requiring her to sleep in a recliner but denies any peripheral edema. No known history of congestive heart failure. She reports that she has had a full cardiac workup in October and was told it was negative. It appears that she has had an echocardiogram and a myocardial nuclear perfusion scan. According to the results of the perfusion scan it says that there is a medium size mild intensity reversible mid to distal anterior septal and apical wall defect which may be consistent with ischemia unfortunately no prone images were obtained. Related Data Home Medications Medication Instructions Recorded Confirmed calcium carbonate 600 mg calcium 1,200 mg PO ONCE 11/05/21 10/12/22 (1,500 mg) tablet multivitamin 1 tab PO DAILY 11/05/21 10/12/22 omega 4-kzr-pov-fish oil 1,000 mg 1 cap PO BID 11/05/21 10/12/22 (120 mg-180 mg) capsule (Fish Oil) Previous Rx's Medication Instructions Recorded blood-glucose meter #1 ea 01/28/20 [address] permit #1 ea 06/03/20 clobetasol 0.05 % topical ointment See Rx Instructions .Route 06/17/22 .COMPLEX #60 grams hydrochlorothiazide 12.5 mg tablet 12.5 mg PO DAILY #90 tabs 09/16/22 metoprolol succinate 25 mg See Rx Instructions PO .COMPLEX 10/21/22 tablet,extended release 24 hr #270 tabs blood sugar diagnostic (Blood #100 ea 11/09/22 Glucose Test strips) lancets 33 gauge (BD Ultra Fine #100 ea 11/09/22 Lancets) Allergies Allergy/AdvReac Type Severity Reaction Status Date / Time latex [LATEX] Allergy Mild RASH Verified 12/12/22 09:41 nitrofurantoin Allergy Mild RASH Verified 12/12/22 09:41 [NITROFURANTOIN] Jntpsca-HCG-RzV Reductase Allergy Mild JOINT PAINS Verified 12/12/22 09:41 Inhibitor [XWOTVIE-CRB-TJI REDUCTASE INHIBITOR] sulfadiazine [SULFADIAZINE] Allergy Mild JOINT PAIN Verified 12/12/22 09:41 ciprofloxacin [CIPROFLOXACIN] Allergy Unknown CIPRO HC Verified 12/12/22 09:41 losartan AdvReac Severe Difficulty Verified 12/12/22 09:41 Breathing Review of Systems Review of Systems ROS Unobtainable: All systems reviewed & are unremarkable except as noted in HPI and below Patient History Medical History Anxiety Atypical chest pain Chronic kidney disease due to type 2 diabetes mellitus Diabetic neuropathy RENEE (dyspnea on exertion) Foot callus Grief counseling History of CVA with residual deficit Hypertension Onychomycosis Physical deconditioning Poor sleep pattern Small vessel cerebrovascular accident (CVA) (07/22/15) Type 2 diabetes mellitus Surgical History History of excision of pilonidal cyst History of knee replacement Family History Brother Diabetes mellitus Heart disease Hypertension High cholesterol Father Cancer Mother Hypertension High cholesterol Sister Heart disease Hypertension High cholesterol Social History household members: spouse Smoking Status: Never smoker eating out: 1-3 times/week Type(s) of exercise: walking Smoking Status: Never smoker Substance Use Type: does not use Exam Initial Vital Signs Initial Vital Signs: Vital Signs Temperature 97.9 F 12/12/22 09:34 Pulse Rate 62 12/12/22 09:34 Respiratory Rate 18 12/12/22 09:34 Blood Pressure 180/76 H 12/12/22 09:34 Pulse Oximetry 99 12/12/22 09:34 Oxygen Delivery Method Room Air 12/12/22 09:34 GENERAL: Alert pleasant well-appearing 87-year-old female and in no acute distress. HEENT: Head atraumatic,EOMI, pupils reactive, face symmetric, moist mucous membranes CARDIOVASCULAR: Regular rate and rhythm without murmurs, rubs or gallops. RESPIRATORY: Breath sounds equal bilaterally, no wheezes rales or rhonchi. ABDOMEN: Soft, nontender. Normoactive bowel sounds all 4 quadrants. No guarding or rebound. EXTREMITIES: Normal range of motion, no clubbing or edema. Neurovascularly intact NEUROLOGICAL: Alert and oriented x4. SKIN: Warm, dry, no laceration, no petechiae, no rashes or lesions. Course Orders Ordered: ED Orders 12/12/22 10:28 EKG-12 Lead Stat 12/12/22 11:10 CT angio chest abdomen pelvis Stat 12/12/22 11:45 Trop I [Troponin I] Stat 12/12/22 12:11 EKG-12 Lead Routine Discontinued Medications Aspirin (Aspirin 81 Mg Chew Tab) 324 mg PO NOW ONE Stop: 12/12/22 10:53 Last Admin: 12/12/22 11:17 Dose: 324 mg Documented By: AT Heparin Sodium (Porcine) (Heparin 5,000 Unit/Ml Vial) 4,000 unit IV NOW ONE Stop: 12/12/22 10:53 Last Admin: 12/12/22 11:33 Dose: 4,000 unit Documented By: AT Heparin Sodium/Dextrose (Heparin Drip) 25,000 unit in 500 mls @ 17.418 mls/hr IV CONT UBALDO; Protocol Last Titration: 12/12/22 15:38 Dose: 12 units/kg/hr, 17.418 mls/hr Documented By: SB Co-signed By: RL Admin: 12/12/22 11:34 Dose: 12 units/kg/hr, 17.418 mls/hr Documented By: AT Co-signed By: KEY Nitroglycerin (Nitroglycerin 0.4 Mg Sl Tab) 0.4 mg SL [id number] PRN PRN Reason: Chest Pain Last Admin: 12/12/22 11:54 Dose: 0.4 mg Documented By: Admin: 12/12/22 11:19 Dose: 0.4 mg Documented By: AT Vital Signs Vital signs: Vital Signs - 8 hr 12/12/22 11:34 12/12/22 11:34 12/12/22 11:48 Pulse Rate 80 70 Respiratory Rate 20 29 H Blood Pressure 191/93 H Pulse Oximetry 97 Oxygen Delivery Method Room Air 12/12/22 11:48 12/12/22 12:00 12/12/22 12:01 Pulse Rate 79 Respiratory Rate 24 Blood Pressure 198/89 H 130/65 Pulse Oximetry 97 Oxygen Delivery Method 12/12/22 12:01 12/12/22 12:15 12/12/22 12:15 Pulse Rate 76 71 Respiratory Rate 18 24 Blood Pressure 132/71 Pulse Oximetry 96 96 Oxygen Delivery Method 12/12/22 12:30 12/12/22 12:30 12/12/22 13:00 Pulse Rate 64 Respiratory Rate 17 Blood Pressure 142/67 H 182/83 H Pulse Oximetry 97 Oxygen Delivery Method Room Air 12/12/22 13:00 12/12/22 13:16 12/12/22 13:16 Pulse Rate 65 64 Respiratory Rate 25 H 22 Blood Pressure 178/76 H Pulse Oximetry 99 98 Oxygen Delivery Method 12/12/22 13:30 12/12/22 13:30 12/12/22 13:46 Pulse Rate 65 79 Respiratory Rate 22 23 Blood Pressure 175/78 H Pulse Oximetry 98 97 Oxygen Delivery Method Room Air 12/12/22 13:46 12/12/22 14:00 12/12/22 14:01 Pulse Rate 76 73 Respiratory Rate 23 21 Blood Pressure 222/93 H Pulse Oximetry 97 98 Oxygen Delivery Method 12/12/22 14:01 12/12/22 14:16 12/12/22 14:16 Pulse Rate 74 Respiratory Rate 22 Blood Pressure 206/84 H 199/92 H Pulse Oximetry 98 Oxygen Delivery Method 12/12/22 14:30 12/12/22 14:30 12/12/22 14:46 Pulse Rate 72 Respiratory Rate 24 Blood Pressure 219/87 H 182/77 H Pulse Oximetry 97 Oxygen Delivery Method 12/12/22 14:46 12/12/22 15:00 12/12/22 15:00 Pulse Rate 68 70 Respiratory Rate 16 Blood Pressure 173/77 H Pulse Oximetry 97 97 Oxygen Delivery Method 12/12/22 15:15 12/12/22 15:15 12/12/22 15:30 Pulse Rate 71 Respiratory Rate Blood Pressure 197/86 H 185/84 H Pulse Oximetry 98 Oxygen Delivery Method Room Air 12/12/22 15:30 Pulse Rate 73 Respiratory Rate Blood Pressure Pulse Oximetry 98 Oxygen Delivery Method Room Air Medical Decision Making Lab Data 12/12/22 09:40 12/12/22 09:40 Labs: Lab Results 0612/12/22 12/12/22 Range/Units 09:40 09:40 09:40 WBC 6.3 (4.5-11.0) X10^3/uL RBC 4.04 (4.0-5.2) X10^6/uL Hgb 13.1 (12.0-16.0) g/dL Hct 38.6 (36-46) % MCV 95.6 (80-100) fL MCH 32.4 (26-34) PG MCHC 33.9 (30-36) % RDW 13.6 (11.6-14.8) % Plt Count 222 (150-400) X10^3/uL Neut % (Auto) 60.8 (50-75) % Lymph % (Auto) 27.5 (25-40) % [place] % (Auto) 10.1 (3-14) % Eos % (Auto) 1.3 L (2-4) % Baso % (Auto) 0.3 (0-2) % Neut # (Auto) 3800 (8028-2245) /uL Lymph # (Auto) 1700 (5240-9493) /uL [place] # (Auto) 600 (0-900) /uL Eos # (Auto) 100 (0-450) /uL Baso # (Auto) 0 (0-100) /uL PT 11.5 (10.1-12.7) SECONDS INR 1.0 (0.9-1.3) APTT (26-36) SECONDS Sodium 137 (137-145) mmol/L Potassium 4.2 (3.4-5.1) mmol/L Chloride 100 (98-107) mmol/L Carbon Dioxide 29 (22-32) mmol/L BUN 29 H (7-17) mg/dL Creatinine 1.11 H (0.52-1.04) mg/dL Estimated GFR 49 L (>60) mL/min BUN/Creatinine Ratio 26.1 H (6-22) Glucose 124 H (80-110) mg/dL Lactate (0.7-2.1) mmol/L Calcium 9.6 (8.4-10.2) mg/dL Total Bilirubin 0.6 (0.2-1.3) mg/dL AST 50 H (14-36) IU/L ALT 21 (<35) IU/L Alkaline Phosphatase 87 (38-126) U/L Troponin I 1.690 H* (0.01-0.034) ng/mL NT-Pro-B Natriuret Pep 1740 H (<450) pg/mL Total Protein 7.4 (6.3-8.2) g/dL Albumin 4.2 (3.5-5.0) g/dL Globulin 3.2 (1.7-4.1) g/dL Albumin/Globulin Ratio 1.3 (1.0-2.8) 12/12/22 12/12/22 12/12/22 Range/Units 09:40 09:40 11:45 WBC (4.5-11.0) X10^3/uL RBC (4.0-5.2) X10^6/uL Hgb (12.0-16.0) g/dL Hct (36-46) % MCV (80-100) fL MCH (26-34) PG MCHC (30-36) % RDW (11.6-14.8) % Plt Count (150-400) X10^3/uL Neut % (Auto) (50-75) % Lymph % (Auto) (25-40) % [place] % (Auto) (3-14) % Eos % (Auto) (2-4) % Baso % (Auto) (0-2) % Neut # (Auto) (9582-1742) /uL Lymph # (Auto) (6843-9805) /uL [place] # (Auto) (0-900) /uL Eos # (Auto) (0-450) /uL Baso # (Auto) (0-100) /uL PT (10.1-12.7) SECONDS INR (0.9-1.3) APTT 30 (26-36) SECONDS Sodium (137-145) mmol/L Potassium (3.4-5.1) mmol/L Chloride (98-107) mmol/L Carbon Dioxide (22-32) mmol/L BUN (7-17) mg/dL Creatinine (0.52-1.04) mg/dL Estimated GFR (>60) mL/min BUN/Creatinine Ratio (6-22) Glucose (80-110) mg/dL Lactate 1.0 (0.7-2.1) mmol/L Calcium (8.4-10.2) mg/dL Total Bilirubin (0.2-1.3) mg/dL AST (14-36) IU/L ALT (<35) IU/L Alkaline Phosphatase (38-126) U/L Troponin I 2.120 H* (0.01-0.034) ng/mL NT-Pro-B Natriuret Pep (<450) pg/mL Total Protein (6.3-8.2) g/dL Albumin (3.5-5.0) g/dL Globulin (1.7-4.1) g/dL Albumin/Globulin Ratio (1.0-2.8) Urine Dip Bedside Urine Glucose Negative Bedside Urine Bilirubin - Negative Bedside Urine Ketone - Negative Urine Specific [place] 1.010 Bedside Urine Occult Blood - Negative Bedside Urine pH 6.0 Bedside Urine Protein - Negative Bedside Urine Urobilinogen - Negative Bedside Urine Nitrite - Negative Bedside Urine Leukocytes +++ 500 Esterase Point of care testing: Urine Dip Bedside Urine Glucose Negative Bedside Urine Bilirubin - Negative Bedside Urine Ketone - Negative Urine Specific [place] 1.010 Bedside Urine Occult Blood - Negative Bedside Urine pH 6.0 Bedside Urine Protein - Negative Bedside Urine Urobilinogen - Negative Bedside Urine Nitrite - Negative Bedside Urine Leukocytes +++ 500 Esterase Imaging Data Chest x-ray: Radiologist's Impression: PROCEDURE:? XR CHEST 1V ? INDICATIONS:? Shortness of breath ? TECHNIQUE:? One view of the chest was acquired.? ? COMPARISON:? [facility], , XR CHEST 1V, 09/08/2021, 9:39. ? FINDINGS:? ? Surgical changes and devices:? None.? ? Lungs and pleura:? Lungs are clear.? No pleural effusions or pneumothorax.? ? Mediastinum:? Mediastinal contours appear normal.? Heart size is normal.? ? Bones and chest wall:? Severe scoliosis.? No suspicious bony lesions.? Overlying soft tissues appear unremarkable.? ? IMPRESSION:? No acute cardiopulmonary disease.? Severe scoliosis. ? ? Dictated by: Burke Raymond M.D. on 12/12/2022 at 10:07? CT scan - chest: Radiologist's Impression: PROCEDURE:? CT ANGIO CHEST ABDOMEN PELVIS ? INDICATIONS:? chest pain NSTEMI ? TECHNIQUE:? Precontrast 5 mm thick sections acquired from the lung apices to the iliac crests.? After the administration of intravenous contrast, 2.5 mm thick sections again acquired from the lung apices to the iliac crests.? Maximum intensity projection (MIP) oblique sagittal and coronal reformats were then acquired.? For radiation dose reduction, the following was used:? automated exposure control.? ? COMPARISON:? [facility], CR, XR CHEST 1V, 12/12/2022, 9:47. ? FINDINGS:? Image quality:? There are respiratory motion artifacts.? ? AORTA:? Aorta is normal in caliber.? No aortic dissection. ? CHEST:? Lungs and pleura:? Mild mosaic attenuation in lower lobes bilaterally.? No focal consolidation or pleural effusion.? No pneumothorax.? Central and peripheral airways are patent and normal in caliber.? ? Mediastinum:? Heart size is normal.? There is severe coronary artery calcification involving the LAD.? No pericardial effusion.? No mediastinal or hilar adenopathy by size criteria.? Central pulmonary arteries are normal in size.? Esophagus is normal in caliber.? There is a moderate-sized hiatal hernias.? ? Bones and chest wall:? No axillary adenopathy by size criteria.? Thyroid gland is unremarkable .? No suspicious bony lesions.? No vertebral body compression fractures.? ? ? ABDOMEN:? Vasculature:? Celiac trunk and mesenteric arteries are patent.? Renal arteries are also patent.? ? Solid organs:? Liver is normal in size and enhancement.? Mild gallbladder wall thickening.? No opaque gallstones.? Biliary system is non dilated.? Pancreas enhances normally.? Spleen is normal in size and enhancement.? No adrenal nodules.? Both kidneys are normal in size and enhancement, without hydronephrosis.? ? Peritoneum and bowel:? No free fluid or air.? There may be mild gastric antral thickening.? Bowel loops are normal in caliber and wall thickness.? Extensive colonic diverticulosis.? No findings to suggest acute diverticulitis.? Normal appendix. ? Nodes and vessels:? No retroperitoneal or mesenteric adenopathy by size criteria.? Inferior vena cava is normal in morphology.? ? Miscellaneous:? No ventral hernias.? ? ? PELVIS:? Genitourinary:? Bladder wall thickness is normal.? ? Miscellaneous:? No inguinal hernias or adenopathy.? No ventral hernias.? ? Bones:? No suspicious bony lesions.? No vertebral body compression fractures.? Scoliosis. ?There are degenerative changes in lumbar spine.? ? ? IMPRESSION:? ? 1. No aortic dissection. 2. Extensive coronary artery calcification consistent with atherosclerosis. 3. Mild mosaic attenuation in lower lobes bilaterally.? The finding may be secondary to mild CHF.? Recommend clinical correlation. 4.? Moderate-sized hiatal hernia. 5. Mild gallbladder wall thickening.? No radiopaque gallstones.? If clinically indicated, gallbladder ultrasound may be helpful. 6. Gastric antral thickening.? Differential diagnoses are gastritis, peptic ulcer disease an artifact. 7. Extensive diverticulosis.? No acute diverticulitis. 8. Scoliosis and degenerative changes in lumbar spine. ? Dictated by: Burke Raymond M.D. on 12/12/2022 at 12:48 ? ? Nuc Med test 10/11/22: Radiologist's Impression: PROCEDURE:? NM OMER PERF SPECT R&S PHARM Rest and pharmacological stress myocardial perfusion SPECT with gated imaging and ejection fraction ? RADIOPHARMACEUTICAL:? 9.4 mCi Tc-99m tetrafosmin IV at rest and 26.1 mCi Tc-99m tetrafosmin IV at peak effect of pharmacological stress.? [id number] was performed. ? ? INDICATIONS:? Shortness of breath ? TECHNIQUE:? Radiopharmaceutical was injected at peak stress test, and also at rest.? SPECT images were obtained.? SPECT myocardial perfusion images were displayed in short axis, horizontal long axis, and vertical long axis views.? Gated images were reviewed using [email or web address] software.? ? COMPARISON:? None. ? CARDIAC STRESS:? A pharmacologic stress test was performed under the supervision of an attending staff, using an infusion of regadenoson 0.4 mg IV.? Hemodynamic data:? There is normal blood pressure and heart rate response to pharmacologic stress.? Symptoms:? The patient denied anginal chest pain.? ? EKG:? No diagnostic changes of ischemia; no ectopy.? ? FINDINGS:? ? Raw data:? There is good myocardial uptake of radiotracer.? No significant motion artifacts.? [id number]-[id number] ratio is 0.38 (normal is less than 0.38 for tetrafosmin tracer).? ? Left ventricle function:? Gated images demonstrate normal left ventricular wall thickening.? No segmental wall motion abnormalities.? No transient ischemic dilation; TID is 1.0 (normal less than 1.3).? Left ventricle resting end diastolic volume was not assessed.? Left ventricle stress ejection fraction is > 75%; normal range is above 45%.? ? Myocardial perfusion:? There is a medium size, mild intensity reversible mid to distal anteroseptal and apical wall defect.? ? IMPRESSION: Abnormal study. ? There is a medium size, mild intensity reversible mid to distal anteroseptal and apical wall defect which may be consistent with ischemia.? Unfortunately, no prone images were obtained. ? Normal LV function. ? ? ? Dictated by: Lorrie Chavarria D.O. on 10/11/2022 at 16:23 ? ? ECG Data Interpretation: Normal sinus rhythm rate 57 NM interval 198 QRS 100 QTC 439 T-wave inversions V1 V2 V3 new from previous EKGs no ST elevations or depressions EKG 2. Sinus rhythm ST depression noted in lead 2 AVF V6 new from previous T-wave inversions no longer present EKG 3. Significant T-wave inversions in V2 and V3 ST depression previously noted has gone no ST elevation MDM Narrative Medical decision making narrative: Patient 87-year-old female presents today with shortness of breath and chest pain with exertion ongoing for the last 3 days she is also some orthopnea. She is found to have new T-wave inversions on her EKG and the anterior septal leads consistent with defect seen on the nuclear stress test in October. She has no ST elevations troponin is found to be 1.69 and rising with a repeat of 2.12. BNP is also slightly elevated at 17 40 without obvious signs of fluid overload or congestive heart failure. Whenever patient gets up to move she is short of breath and blood pressure ellie rocket. She got up to go the bathroom blood pressure increased she came back in it was 215/98 she received 2 nitroglycerins. She overall appears well nonetheless she went to CT angio which did not show any dissection but does show significant coronary artery disease and calcifications. Patient is given aspirin placed on heparin drip. Patient is requesting to go to [facility] for further evaluation and testing she says she is been there before. Dr Michaud, hospitalist at [facility] updated patient's symptoms test results and kindly accepts patient. Records of recent stress test echocardiogram prior EKGs are all provided in chart for transport Critical Care Time Critical Care Time Critical Care Time: Yes Total Critical Care Time: 45 Attestation: The high probability of a clinically significant, sudden or life threatening deterioration of the [cardiovascular] system(s) required my full and direct attention, intervention and personal management. The aggregate critical care time was [45] minutes. This time is in addition to time spent performing reported procedures but includes the following: [x] Data Review and interpretation [x] Patient assessment and monitoring of vital signs [x] Documentation [x] Medication orders and management Discharge Plan Departure Patient Disposition: [facility] Clinical Impression: Acute non-ST elevation myocardial infarction (NSTEMI) Prescriptions: No Action (DME) blood-glucose meter Misc See Rx Instructions .ROUTE .MEDSUPPLY Qty: 1 0RF Rx Instructions: Use to check blood sugars once daily- brand per insurance clobetasol 0.05 % ointment See Rx Instructions .ROUTE .COMPLEX Qty: 60 11RF Dose Instruction: APPLY 1 GRAM TOPICALLY TWICE A DAY FOR ITCH Rx Instructions: APPLY 1 GRAM TOPICALLY TWICE A DAY FOR ITCH metoprolol succinate 25 mg tablet extended release 24 hr See Rx Instructions PO .COMPLEX Qty: 270 1RF Rx Instructions: Take 25 mg in morning and 50 mg in the evening (DME) Blood Glucose Test Strip See Rx Instructions .ROUTE .MEDSUPPLY Qty: 100 4RF Rx Instructions: Use to check blood sugars once daily (DME) lancets [BD Ultra Fine Lancets] 33 gauge misc See Rx Instructions .ROUTE .MEDSUPPLY Qty: 100 4RF Rx Instructions: Use to test blood glucose once daily (DME) disabled parking permit See Rx Instructions .ROUTE .MEDSUPPLY Qty: 1 0RF Rx Instructions: As directed. patient qualifies for disabled parking as per attached form. calcium carbonate 600 mg calcium (1,500 mg) tablet 1,200 mg PO ONCE Rx Instructions: may repeat once in a 24 hour period omega 3-cft-ldu-fish oil [Fish Oil] 1,000 mg (120 mg-180 mg) capsule 1 cap PO BID multivitamin Tablet 1 tab PO DAILY hydrochlorothiazide 12.5 mg tablet 12.5 mg PO DAILY Qty: 90 1RF Referrals: Alex Bowen DO [Primary Care Provider] -
[2022-12-12 10:24] LABS: NT-proBNP (BNP-Adult 18+) 1740 pg/mL (<450)
--- NOTE | 2022-12-12 11:10 | DI.CT.S_ITS ---
PROCEDURE: CT ANGIO CHEST ABDOMEN PELVIS INDICATIONS: chest pain NSTEMI TECHNIQUE: Precontrast 5 mm thick sections acquired from the lung apices to the iliac crests. After the administration of intravenous contrast, 2.5 mm thick sections again acquired from the lung apices to the iliac crests. Maximum intensity projection (MIP) oblique sagittal and coronal reformats were then acquired. For radiation dose reduction, the following was used: automated exposure control. COMPARISON: [facility], CR, XR CHEST 1V, 12/12/2022, 9:47. FINDINGS: Image quality: There are respiratory motion artifacts. AORTA: Aorta is normal in caliber. No aortic dissection. CHEST: Lungs and pleura: Mild mosaic attenuation in lower lobes bilaterally. No focal consolidation or pleural effusion. No pneumothorax. Central and peripheral airways are patent and normal in caliber. Mediastinum: Heart size is normal. There is severe coronary artery calcification involving the LAD. No pericardial effusion. No mediastinal or hilar adenopathy by size criteria. Central pulmonary arteries are normal in size. Esophagus is normal in caliber. There is a moderate-sized hiatal hernias. Bones and chest wall: No axillary adenopathy by size criteria. Thyroid gland is unremarkable . No suspicious bony lesions. No vertebral body compression fractures. ABDOMEN: Vasculature: Celiac trunk and mesenteric arteries are patent. Renal arteries are also patent. Solid organs: Liver is normal in size and enhancement. Mild gallbladder wall thickening. No opaque gallstones. Biliary system is non dilated. Pancreas enhances normally. Spleen is normal in size and enhancement. No adrenal nodules. Both kidneys are normal in size and enhancement, without hydronephrosis. Peritoneum and bowel: No free fluid or air. There may be mild gastric antral thickening. Bowel loops are normal in caliber and wall thickness. Extensive colonic diverticulosis. No findings to suggest acute diverticulitis. Normal appendix. Nodes and vessels: No retroperitoneal or mesenteric adenopathy by size criteria. Inferior vena cava is normal in morphology. Miscellaneous: No ventral hernias. PELVIS: Genitourinary: Bladder wall thickness is normal. Miscellaneous: No inguinal hernias or adenopathy. No ventral hernias. Bones: No suspicious bony lesions. No vertebral body compression fractures. Scoliosis. There are degenerative changes in lumbar spine. IMPRESSION: 1. No aortic dissection. 2. Extensive coronary artery calcification consistent with atherosclerosis. 3. Mild mosaic attenuation in lower lobes bilaterally. The finding may be secondary to mild CHF. Recommend clinical correlation. 4. Moderate-sized hiatal hernia. 5. Mild gallbladder wall thickening. No radiopaque gallstones. If clinically indicated, gallbladder ultrasound may be helpful. 6. Gastric antral thickening. Differential diagnoses are gastritis, peptic ulcer disease an artifact. 7. Extensive diverticulosis. No acute diverticulitis. 8. Scoliosis and degenerative changes in lumbar spine. Dictated by: Burke Raymond M.D. on 12/12/2022 at 12:48 Approved by: Burke Raymond M.D. on 12/12/2022 at 12:59
[2022-12-12] MEDS: ASPIRIN 81 MG CHEW TAB 324 MG PO (11:17)
[2022-12-12] MEDS: NITROGLYCERIN 0.4 MG SL TAB SL ×2 (11:19→11:54)
[2022-12-12 11:21] LABS: PTT Partial Thromboplastin Tim 30 SECONDS (26-36)
[2022-12-12] MEDS: HEPARIN 5,000 UNIT/ML VIAL 4000 UNIT IV (11:33)
[2022-12-12] MEDS: HEPARIN DRIP 25,000 UNIT/500 ML IV.SOLN 17.418 UNIT IV (11:34)
--- NOTE | 2022-12-12 13:44 | PC.NURSE ---
SALES SERVICE ASSISTANT NOTE: payton placed pt education given.
== END 2022-12-12 15:39 | disposition short-term general hospital (02) ==
PROVIDERS: Emergency Provider Emergency Medicine; PCP Family Medicine
DX: I21.4 Non-ST elevation (NSTEMI) myocardial infarction (principal); R06.02 Shortness of breath; R07.9 Chest pain, unspecified
CPT/HCPCS: 36415; 71045; 71275; 74174; 80053; 81003; 83605; 83880; 84484; 85025; 85610; 85730; 93005; 96365; 96366; 96375; 99285; 99291; J1644; Q9967